=== PATIENT | female | born 1990 | race Two or more races ===

== ENCOUNTER → 2021-01-07 09:56 | Outpatient (BNVA) | payer OTHER, SELFPAY | PROVIDERS: Visit Provider Obstetrics & Gynecology | DX: Z34.90 Encounter for supervision of normal pregnancy, unspecified, unspecified trimester (principal); E66.9 Obesity, unspecified; Z78.9 Other specified health status; Z87.59 Personal history of other complications of pregnancy, childbirth and the puerperium | CPT/HCPCS: 99212 ==

== ENCOUNTER 2021-01-10 14:10 | Outpatient (REF) | payer OTHER, SELFPAY ==
[2021-01-10 15:41] LABS: HCG Quantitative 10 mIU/mL
== END 2021-01-10 14:11 | disposition home or self-care (01) ==
LOC: HO.LAB 14:10
PROVIDERS: Visit Provider Obstetrics & Gynecology
DX: O20.0 Threatened abortion (principal)
CPT/HCPCS: 36415; 84702; 86850; 86900; 86901

== ENCOUNTER 2021-01-11 08:17 | Outpatient (REF) | payer OTHER, SELFPAY ==
--- NOTE | ~2021-01-11 | US_ITS ---
EXAMINATION: US PELVIS ULTRASOUND CLINICAL INFORMATION: Early . Unknown LMP. Cramping. Threatened . COMPARISON: Pelvic ultrasound 08/13/2017 TECHNIQUE: Ultrasound of the pelvis is performed using both transabdominal and transvaginal transducers along with Doppler. Transvaginal imaging is performed due to inadequate visualization transabdominally. FINDINGS: Uterus: The uterus is anteverted and measures 6.9 x 4.1 x 4.8 cm. The double wall endometrial thickness is 6 mm. There is no intrauterine gestational sac or pseudosac or fluid in the uterine cavity. A 3 mm nonspecific hyperechoic focus is present at the fundal anterior endometrium. There is no associated color flow or posterior shadowing. The uterus is smooth in contour and has normal myometrial echogenicity. No visible fibroid. Adnexa: Both ovaries are visualized. There is normal color flow to the adnexa. There is no ovarian torsion. There is no pelvic ascites or fluid collection. Right ovary measures 3.1 x 1.6 x 1.9 cm. Left ovary measures 2.4 x 1.3 x 1.3 cm. Preliminary findings called to Obstetrical Department at 0905 hours. Patient sent to obstetrical department for further management immediately following the ultrasound. US/US OB transvaginal IMPRESSION: 1. No intrauterine gestational sac, pseudocyst, or fluid in uterine cavity. 2. Nonspecific 3 mm hyperechoic focus anterior fundal endometrium without shadowing or color flow, doubtful significance. 3. No adnexal mass or pelvic ascites.
--- NOTE | ~2021-01-11 | US_ITS ---
EXAMINATION: US PELVIS ULTRASOUND CLINICAL INFORMATION: Early . Unknown LMP. Cramping. Threatened . COMPARISON: Pelvic ultrasound 08/13/2017 TECHNIQUE: Ultrasound of the pelvis is performed using both transabdominal and transvaginal transducers along with Doppler. Transvaginal imaging is performed due to inadequate visualization transabdominally. FINDINGS: Uterus: The uterus is anteverted and measures 6.9 x 4.1 x 4.8 cm. The double wall endometrial thickness is 6 mm. There is no intrauterine gestational sac or pseudosac or fluid in the uterine cavity. A 3 mm nonspecific hyperechoic focus is present at the fundal anterior endometrium. There is no associated color flow or posterior shadowing. The uterus is smooth in contour and has normal myometrial echogenicity. No visible fibroid. Adnexa: Both ovaries are visualized. There is normal color flow to the adnexa. There is no ovarian torsion. There is no pelvic ascites or fluid collection. Right ovary measures 3.1 x 1.6 x 1.9 cm. Left ovary measures 2.4 x 1.3 x 1.3 cm. Preliminary findings called to Obstetrical Department at 0905 hours. Patient sent to obstetrical department for further management immediately following the ultrasound. US/US OB <= 14 weeks fetus IMPRESSION: 1. No intrauterine gestational sac, pseudocyst, or fluid in uterine cavity. 2. Nonspecific 3 mm hyperechoic focus anterior fundal endometrium without shadowing or color flow, doubtful significance. 3. No adnexal mass or pelvic ascites.
== END 2021-01-11 08:18 | disposition home or self-care (01) ==
LOC: HO.US 08:17
PROVIDERS: Visit Provider Obstetrics & Gynecology
DX: O20.0 Threatened abortion (principal)
CPT/HCPCS: 76801; 76817

== ENCOUNTER 2021-01-14 11:44 | Outpatient (REF) | payer OTHER, SELFPAY ==
[2021-01-14 12:26] LABS: Hematocrit 40.1 % (37-47); Hemoglobin 12.6 g/dl (12.0-16.0); Mean Corpuscular HGB Conc 31.4 g/dl (31.0-35.0); Mean Corpuscular Hemoglobin 22.6 pg (27.0-33.0); Mean Corpuscular Volume 71.9 fL (80-98); Mean Platelet Volume 10.1 fL (9.4-12.3); Platelet Count 300 X10*3/uL (160-400); Red Blood Count 5.58 X10*6/uL (4.20-5.50); Red Cell Distribution Width 16.8 % (11.0-16.0); White Blood Count 8.6 X10*3/uL (4.8-10.8)
[2021-01-14 13:25] LABS: HCG Quantitative < 2 mIU/mL
== END 2021-01-14 11:45 | disposition home or self-care (01) ==
LOC: HO.LAB 11:44
PROVIDERS: Visit Provider Advanced Practice Midwife
DX: O20.0 Threatened abortion (principal)
CPT/HCPCS: 36415; 84702; 85027; 99212

== ENCOUNTER 2021-01-21 08:33 | Outpatient (REF) | payer OTHER, SELFPAY ==
[2021-01-24 07:17] LABS: HPV mRNA E6/E7 rflx Not Detected (Not Detected)
== END 2021-01-21 08:34 | disposition home or self-care (01) ==
LOC: HO.LAB 08:33
PROVIDERS: Visit Provider Obstetrics & Gynecology
DX: Z01.419 Encounter for gynecological examination (general) (routine) without abnormal findings (principal); Z11.51 Encounter for screening for human papillomavirus (HPV)
CPT/HCPCS: 87624; 88142

== ENCOUNTER 2021-04-28 23:51 | Emergency (ER) | payer OTHER, SELFPAY ==
--- NOTE | ~2021-04-28 | CT_ITS ---
EXAMINATION: CT CHEST WITHOUT CONTRAST CLINICAL INFORMATION: Covid like symptoms. Repeat negative swabs COMPARISON: Radiograph from today TECHNIQUE: Multidetector volumetric CT imaging of the chest was done. Axial MIP volume rendering provided. Sagittal and coronal reformatted images were obtained. This CT examination was performed using dose optimization techniques as appropriate, variously including the following: *Automated exposure control *Adjustment of mA and/or kV according to patient size (this includes techniques or standardized protocols for targeted exams where dose is matched to indication/reason for exam; i.e. extremities or head) *Use of iterative reconstruction technique DLP: 465 mGy-cm FINDINGS: BLOOD SPLATTER ANALYST: Cardiac leads overlie the chest. LUNGS: The central airways are patent. Multifocal groundglass opacities are seen throughout both lungs. No pleural effusion or pneumothorax. MEDIASTINUM: Normal heart size. No pericardial effusion. No mediastinal lymphadenopathy. AXILLA: No lymphadenopathy. UPPER ABDOMEN: Cholecystectomy. OSSEOUS STRUCTURES: Unremarkable. CT/CT chest wo con IMPRESSION: Multifocal groundglass opacities throughout both lungs. Commonly reported imaging features of (COVID-19 or viral) pneumonia are present. Other processes such as influenza pneumonia and organizing pneumonia, as can be seen with drug toxicity and connective tissue disease, can cause a similar imaging pattern.
--- NOTE | ~2021-04-28 | XR_ITS ---
EXAMINATION: XR CHEST CLINICAL INFORMATION: Rule out pneumonia COMPARISON: 04/12/2018 TECHNIQUE: Frontal view of the chest was obtained. FINDINGS: Cardiac leads overlie the chest. The lungs are well expanded. Bronchial wall thickening present. There is no focal consolidation, edema, or effusion. No pneumothorax. The cardiomediastinal silhouette is within normal limits. No acute osseous abnormality. XR/XR chest 1V IMPRESSION: No dense consolidation. Bronchial wall thickening can be seen with a small airways process such as asthma or atypical/viral infection.
[2021-04-29 00:03] VITALS: BP 120/70; PULSE 128; RESP 22; TEMP 38.2; O2SAT 95; BMI 40.1
--- NOTE | 2021-04-29 00:12 | ED.FEVER ---
HPI - Fever General Chief Complaint: Fever Stated Complaint: Flu like symptoms Time Seen by Provider: 04/29/21 00:05 Source: patient Mode of arrival: ambulatory Limitations: no limitations History of Present Illness MD elicited complaint: fever, malaise and other (cough) Onset (ago): day(s) (6) Context: sick contacts (child and boyfriend both sick negative COVID in spouse) Exacerbating factors: nothing Relieving factors: nothing Associated symptoms: chills, myalgias, headache, rhinorrhea and cough Treatments prior to arrival fever: none Related Data Home Medications Medication Instructions Recorded Confirmed prenat.vits,comfort,[id number] 1 tab PO DAILY 01/07/21 01/21/21 Allergies Allergy/AdvReac Type Severity Reaction Status Date / Time No Known Allergies Allergy Mild NOT Verified 01/21/21 08:38 APPLICABLE Review of Systems Review of Systems: Constitutional : positive Fever, positive Chills, positive fatigue, positive Malaise ENT/Mouth : positive sore throat, positive runny nose Eyes: No Discharge Cardiovascular : No Chest Pain, No SOB Respiratory : pos Cough, No Sputum Gastrointestinal : No Nausea, No Vomiting, No Diarrhea Genitourinary : No Dysuria, No Urinary Frequency Musculoskeletal : positive Myalgia Skin : No rash Neuro : No Headache All other systems reviewed and are negative PMFSH Past Medical History Attestation statement: The following information was validated with the patient. Medical History Cholecystectomy planned No known health problems Family History Family History Mother Lymphoma Maternal Grandfather Colon cancer Social History Social History (Updated 04/29/21 @ 00:20 by Nan Aranda DO) Alcohol intake: former Patient Tobacco Use Status: Never used Tobacco Advance Directives: No Advance Directives Information Provided: Yes Patient : No Physical Exam Vital Signs: Vital Signs: Last Vital Signs Temp 100.8 F H 04/29/21 00:03 Pulse 128 H 04/29/21 00:03 Resp 22 H 04/29/21 00:03 BP 120/70 04/29/21 00:03 Pulse Ox 95 04/29/21 00:03 Body Mass Index 40.1 Appearance: Alert. Oriented X3. No acute distress. Eyes: Pupils equal, round and reactive to light. ENT: Pharynx normal. Neck: Normal inspection. Neck supple. CVS: tachycardic heart rate and rhythm. Pulses normal. Respiratory: No respiratory distress. Breath sounds diffuse end exp wheezes Abdomen: Soft and non-tender. Skin: Skin warm and dry. Normal skin color. Normal skin turgor. Extremities: No lower extremity edema. No calf ttp Neuro: Oriented X 3. No motor deficit. No sensory deficit. Course Course Course Narrative: had COVID back in August signed out pending labs, CT scan 95% on RA MDM - Fever MDM Narrative Medical decision making narrative: 31 yo female with hx of asthma here with fevers, cough, URI symptoms and positive sick contacts - COVID, CXR for pneumonia ordered, given wheezes INH and PO prednisone ordered. anti-pyretics ordered, dispo per results and findings. Lab Data Result diagrams: 04/29/21 01:28 04/29/21 01:28 Labs: Lab Results 04/29/21 04/29/21 Range/Units 00:27 01:28 WBC 14.3 H (4.8-10.8) X10*3/uL RBC 5.14 (4.20-5.50) X10*6/uL Hgb 12.0 (12.0-16.0) g/dl Hct 36.8 L (37-47) % MCV 71.6 L (80-98) fL MCH 23.3 L (27.0-33.0) pg MCHC 32.6 (31.0-35.0) g/dl RDW 15.6 (11.0-16.0) % Plt Count 265 (160-400) X10*3/uL MPV 9.8 (9.4-12.3) fL Immature Gran % (Auto) 0.5 H (0.0-0.4) % Neut % (Auto) 69.8 (45-73) % Lymph % (Auto) 22.2 (20-40) % [place] % (Auto) 4.9 (2-11) % Eos % (Auto) 2.4 (0-4) % Baso % (Auto) 0.2 (0-2) % Lymph # (Auto) 3.2 (1.2-4.9) X10*3/uL [place] # (Auto) 0.7 (0.1-1.2) X10*3/uL Eos # (Auto) 0.3 (0.0-0.4) X10*3/uL Baso # (Auto) 0.0 (0.0-0.2) X10*3/uL Abs Immat Gran (auto) 0.07 H (0.00-0.03) X10*3/uL Absolute Neuts (auto) 10.0 H (2.0-8.3) X10*3/uL Absolute Nucleated RBC 0.000 (0.0-0.012) X10*3/uL Nucleated RBC % (auto) 0.0 (0.0-0.2) /100WBC COVID-19 ([facility]BROSIO) Negative (Negative) COVID-19 Clin Com See Note Discharge Plan Discharge Clinical Impression: Acute bronchospasm Fever Qualifiers: Fever type: due to other condition Qualified Code(s): R50.81 - Fever presenting with conditions classified elsewhere Prescriptions: No Action prenat.vits,comfort,[id number] Tablet 1 tab PO DAILY RF: 0
[2021-04-29] MEDS: predniSONE 20 MG TABLET 60 MG PO (00:28)
[2021-04-29] MEDS: Acetaminophen 325 MG TABLET 650 MG PO (00:28)
[2021-04-29] MEDS: Ibuprofen 600 MG TABLET PO (00:29)
[2021-04-29] MEDS: Albuterol Sulfate 90 MCG 8 GM INHALER 4 PUFF INHALE (00:32)
[2021-04-29 00:53] LABS: COVID-19 Test Negative (Negative)
[2021-04-29] MEDS: 0.9 % Sodium Chloride 500 ML IV (01:32)
[2021-04-29 01:38] LABS: MANUAL DIFF FLAG NO
[2021-04-29 01:39] LABS: Basophils Percent Auto 0.2 % (0-2); Eosinophils Absolute Auto 0.3 X10*3/uL (0.0-0.4); Eosinophils Percent Auto 2.4 % (0-4); Hematocrit 36.8 % (37-47); Imm Gran Abs Auto 0.07 X10*3/uL (0.00-0.03); Imm Gran Pct Auto 0.5 % (0.0-0.4); Lymphocytes Absolute Auto 3.2 X10*3/uL (1.2-4.9); Lymphocytes Percent Auto 22.2 % (20-40); Mean Corpuscular HGB Conc 32.6 g/dl (31.0-35.0); Mean Corpuscular Hemoglobin 23.3 pg (27.0-33.0); Mean Corpuscular Volume 71.6 fL (80-98); Mean Platelet Volume 9.8 fL (9.4-12.3); Monocytes Absolute Auto 0.7 X10*3/uL (0.1-1.2); Monocytes Percent Auto 4.9 % (2-11); Neutrophils Percent Auto 69.8 % (45-73); Platelet Count 265 X10*3/uL (160-400); Red Blood Count 5.14 X10*6/uL (4.20-5.50); Red Cell Distribution Width 15.6 % (11.0-16.0); White Blood Count 14.3 X10*3/uL (4.8-10.8)
[2021-04-29 02:00] LABS: Lactic Acid 0.9 mmol/L (0.5-2.0)
[2021-04-29 02:05] LABS: Alanine Aminotransferase 26 U/L (0-31); Albumin Level 3.9 g/dL (3.5-5.0); Alkaline Phosphatase 102 U/L (39-117); Anion Gap 14 (12-20); Aspartate Amino Transferase 22 U/L (5-31); Bilirubin Direct 0.2 mg/dL (0.0-0.5); Bilirubin Total 0.4 mg/dL (0.0-1.0); Blood Urea Nitrogen 11 mg/dL (9-16); Calcium 8.9 mg/dL (8.4-10.2); Carbon Dioxide 20 mmol/L (22-29); Chloride 107 mmol/L (96-108); Creatinine Clr Calc Pharmacy 145.1; Estimated Glomerular Filt Rate > 60; Glucose Random 104 mg/dL (60-115); Lactate Dehydrogenase 289 U/L (122-220); Potassium 3.7 mmol/L (3.3-5.1); Sodium 137 mmol/L (135-145)
[2021-04-29 02:08] LABS: HCG Quantitative < 2 mIU/mL
[2021-04-29] MEDS: cefTRIAXone sodium 1 GM in 0.9 % Sodium Chloride 50 ML IV (02:11)
[2021-04-29 02:12] VITALS: TEMP 37.2
[2021-04-29 02:42] LABS: Influenza A PCR NEGATIVE (Negative); Influenza B PCR NEGATIVE (Negative); Resp Syncy Virus RNA Qual PCR NEGATIVE (Negative); SARS COV2 PCR INHOUSE NEGATIVE (Negative)
--- NOTE | 2021-04-29 03:00 | PC.NURSE ---
patient during ambulating trial going from 97% on room air to 93% at the lowest while ambulating.
[2021-04-29] MEDS: Azithromycin 500 MG TABLET PO (03:28)
== END 2021-04-29 03:36 | disposition home or self-care (01) ==
PROVIDERS: Student in an Organized Health Care Education/Training Program; Emergency Provider Emergency Medicine
DX: J98.01 Acute bronchospasm (principal); R50.9 Fever, unspecified; M79.10 Myalgia, unspecified site; R51.9 Headache, unspecified; R05 Cough; Z20.822 Contact with and (suspected) exposure to COVID-19; Z79.899 Other long term (current) drug therapy
CPT/HCPCS: 0241U; 36415; 71045; 71250; 80048; 80076; 83605; 83615; 84702; 85025; 87040; 87635; 94640; 96361; 96365; 96375; 99283; 99284; J0696

== ENCOUNTER → 2021-08-07 10:05 | Outpatient (BNVA) | payer OTHER, SELFPAY | PROVIDERS: Visit Provider Advanced Practice Midwife | DX: Z34.90 Encounter for supervision of normal pregnancy, unspecified, unspecified trimester (principal); O99.210 Obesity complicating pregnancy, unspecified trimester; E66.9 Obesity, unspecified; Z3A.00 Weeks of gestation of pregnancy not specified; Z87.59 Personal history of other complications of pregnancy, childbirth and the puerperium | CPT/HCPCS: 81025; 99212 ==

== ENCOUNTER 2021-08-16 10:22 | Outpatient (REF) | payer OTHER, SELFPAY ==
--- NOTE | ~2021-08-16 | US_ITS ---
EXAMINATION: US OBSTETRICAL ULTRASOUND CLINICAL INFORMATION: Encounter for supervision abnormal . Check size and dates. COMPARISON: None. LMP: 06/11/2021. Gestational age by maternal dates is 9 weeks 3 days. Estimated date of delivery by maternal dates is 03/18/2022. TECHNIQUE: Transverse abdominal first trimester OB ultrasound FINDINGS: There is a single intrauterine gestational sac with visible yolk sac, embryo/fetus, and cardiac activity. There is no significant subchorionic hemorrhage or hematoma. HR: 167 beats per minute. CRL (crown rump length): 2 cm (8 weeks 5 days +/- 4 days). LORNA (estimated date of delivery): 03/23/2022 +/- 4 days. MATERNAL ADNEXA: The right maternal ovary measures 2.6 x 1.4 x 1.3 cm. The left maternal ovary measures 3.4 x 3 x 2.6 cm. There is a 2.4 x 2.2 x 1.8 cm simple left ovarian cyst. No maternal pelvic ascites. US/US OB <= 14 weeks fetus IMPRESSION: 1. Single intrauterine gestation with ultrasound gestational age of 8 weeks 5 days +/- 4 days. 2. Estimated date of delivery is 03/23/2022 +/- 4 days. 3. No maternal adnexal mass or pelvic ascites.
== END 2021-08-16 10:23 | disposition home or self-care (01) ==
LOC: HO.HMGCX 10:22
PROVIDERS: Visit Provider Advanced Practice Midwife
DX: Z34.91 Encounter for supervision of normal pregnancy, unspecified, first trimester (principal)
CPT/HCPCS: 76801

== ENCOUNTER → 2021-08-21 10:01 | Outpatient (BNVA) | payer OTHER, SELFPAY | PROVIDERS: Visit Provider Advanced Practice Midwife | DX: Z34.91 Encounter for supervision of normal pregnancy, unspecified, first trimester (principal); Z3A.09 9 weeks gestation of pregnancy | CPT/HCPCS: 99212 ==

== ENCOUNTER 2021-08-26 09:34 | Outpatient (REF) | payer OTHER, SELFPAY ==
[2021-08-26 11:07] LABS: Hematocrit 38.7 % (37.0-47.0); Hemoglobin 12.3 g/dl (12.0-16.0); Mean Corpuscular HGB Conc 31.8 g/dl (31.0-35.0); Mean Corpuscular Hemoglobin 22.8 pg (27.0-33.0); Mean Corpuscular Volume 71.8 fL (80.0-98.0); Platelet Count 286 X10*3/uL (160-400); Red Blood Count 5.39 X10*6/uL (4.20-5.50); Red Cell Distribution Width 15.5 % (11.0-16.0); White Blood Count 8.8 X10*3/uL (4.8-10.8)
[2021-08-26 11:30] LABS: Glucose 1 Hour PP 50gm Dose 157 mg/dL (60-140)
[2021-08-26 11:39] LABS: Alanine Aminotransferase 22 U/L (0-31); Aspartate Amino Transferase 17 U/L (5-31); Blood Urea Nitrogen 9 mg/dL (9-16); Estimated Glomerular Filt Rate > 60; Uric Acid 3.7 mg/dL (2.4-5.7)
[2021-08-26 11:40] LABS: Amphetamine Screen Urine Not Detected (Not Detect); Barbiturates, Urine Not Detected (Not Detect); Benzodiazepines Screen Urine Not Detected (Not Detect); Cannabinoid Screen Urine Not Detected (Not Detect); Cocaine Screen Urine Not Detected (Not Detect); Fentanyl, urine Not Detected (Not Detect); Opiate Screen Urine Not Detected (Not Detect); Phencyclidine Screen Urine Not Detected (Not Detect)
[2021-08-26 12:01] LABS: HIV AB/AG Nonreactive (Nonreactive); HIV Num 1 0.05 S/CO (0.00-0.99); ~HepC Num1 0.11 S/CO (0.00-0.79); ~Hepatitis C Antibody Nonreactive (Nonreactive)
[2021-08-26 13:09] LABS: Syphilis Screen Nonreactive (Nonreactive)
[2021-08-26 13:11] LABS: HBsAGNum1 0.36 S/CO (0.00-0.99); Hepatitis B Surface Antigen Negative (Negative)
[2021-08-26 16:50] LABS: Creatinine Urine 251.19 mg/dL; Protein/Creatinine Ratio, Ur 0.07 (<0.2); Total Protein Urine Random 17 mg/dL (<12)
== END 2021-08-26 09:35 | disposition home or self-care (01) ==
LOC: HO.LAB 09:34
PROVIDERS: Visit Provider Advanced Practice Midwife
DX: Z34.90 Encounter for supervision of normal pregnancy, unspecified, unspecified trimester (principal); Z87.59 Personal history of other complications of pregnancy, childbirth and the puerperium
CPT/HCPCS: 80307; 82565; 84156; 84450; 84460; 84520; 84550; 85027; 86762; 86780; 86787; 86803; 86850; 86900; 86901; 87086; 87340; 87389

== ENCOUNTER 2021-09-20 08:49 | Outpatient (REF) | payer OTHER, SELFPAY ==
--- NOTE | ~2021-09-20 | US_ITS ---
EXAMINATION: OBSTETRICAL ULTRASOUND, FIRST TRIMESTER HISTORY: 31-year-old at 13.5 weeks of gestation NT screening COMPARISON: 08/16/2021 TECHNIQUE: Real time transabdominal imaging with color and M-mode Doppler. FINDINGS: A single, live IUP CRL of 80.5 mm c/w 14.0wks is noted. Heart Rate: 150 beats per minute. Normal yolk sac seen. NT was 1.2.mm. NB Present The embryo appears sonographically wnl for this GA. Both maternal ovaries are seen and appear normal. GESTATIONAL AGE: 1. Established GA: 13.5 wks 2. GA from AUA: 14.0 wks ESTIMATED DATE OF DELIVERY: 1. Established LORNA: 03/23/2022 2. LORNA from AUA: 03/21/2022 US/US OB 1T nuc measure IMPRESSION: 1. A single live IUP 2. Size equals dates 3. NT of 1.2 mm MFM Consultation: I reviewed the ultrasound findings along with significance of NT measurement. The NT of less than 3mm is generally reassuring. However, the sensitivity for T21 detection is only 60%. I reviewed the availability of serum aneuploidy screening which includes cell-free DNA and placental protein based tests. I discussed the sensitivity, false-positive rate, and other limitations associated with each test. I also reviewed the availability of invasive diagnostic tests that are associated small but definite risk of miscarriage. We also reviewed the differences between screening tests and diagnostic tests. After our discussion, she opted for the First trimester screening that is based on cell-free DNA or non-invasive testing (NIPT). The result will be faxed to your office in approximately 7 days. A follow up at 18 weeks for survey has been scheduled. Thank you very much for this referral. Total time 30 minutes. The time spent was devoted to counseling the patient about the disease and diagnosis, coordinating care including reviewing her records, pertinent lab data and studies, as well as discussing diagnostic evaluation and workup, plan therapeutic interventions and future disposition of care. This includes any additional research needed to obtain further information in formulating the plan of care of this patient. This note was generated with a voice recognition program. Please excuse any errors which may have been overlooked during my review of this note. Sometimes these errors may affect the content or meaning of a given sentence.
== END 2021-09-20 08:50 | disposition home or self-care (01) ==
LOC: HO.US 08:49
PROVIDERS: Visit Provider Advanced Practice Midwife
DX: Z34.91 Encounter for supervision of normal pregnancy, unspecified, first trimester (principal); Z3A.13 13 weeks gestation of pregnancy
CPT/HCPCS: 76813

== ENCOUNTER 2021-09-28 19:39 | Emergency (ER) | payer OTHER, SELFPAY ==
--- NOTE | ~2021-09-28 | US_ITS ---
Indication: 15 weeks , bleeding EXAMINATION: Limited obstetrical ultrasound. Findings; There is a single live intrauterine . The placenta is posterior. Posterior to the placenta is mixed echogenicity large area measuring 6.2 x 4.1 x 5.9 cm. Retroplacental hemorrhage/abruption needs to be considered. The placenta appears to be away from the os. heart rate 156 bpm measured by the river driver. The right ovary is not seen. No free fluid in the pelvis. Simple appearing cyst on the left ovary 1.4 x 1.5 x 1.2 cm US/US OB limited IMPRESSION: This is a limited exam. There is a single live intrauterine with heart rate at 156 bpm. The placenta is posterior however posterior to the placenta is a large area of abnormal mixed echogenicity and therefore hemorrhage/abruption needs to be considered This critical result was discussed with Dr. Vidal at 10:57 PM on 09/28/2021 and it was ascertained that the content and urgency of the report was understood at the time of direct communication.
[2021-09-28 20:30] VITALS: BP 127/89; PULSE 100; RESP 18; TEMP 35.9; O2SAT 97; BMI 41.5
[2021-09-28 22:53] LABS: MANUAL DIFF FLAG NO
[2021-09-28 22:54] LABS: Basophils Percent Auto 0.3 % (0-2); Eosinophils Absolute Auto 0.6 X10*3/uL (0.0-0.4); Eosinophils Percent Auto 4.7 % (0-4); Hematocrit 34.4 % (37.0-47.0); Imm Gran Abs Auto 0.05 X10*3/uL (0.00-0.03); Imm Gran Pct Auto 0.4 % (0.0-0.4); Lymphocytes Absolute Auto 3.1 X10*3/uL (1.2-4.9); Lymphocytes Percent Auto 26.3 % (20-40); Mean Corpuscular Hemoglobin 23.3 pg (27.0-33.0); Mean Corpuscular Volume 72.7 fL (80.0-98.0); Monocytes Absolute Auto 0.6 X10*3/uL (0.1-1.2); Monocytes Percent Auto 4.9 % (2-11); Neutrophils Absolute Auto 7.6 x10*3/uL (2.0-8.3); Neutrophils Percent Auto 63.4 % (45-73); Platelet Count 287 X10*3/uL (160-400); Red Blood Count 4.73 X10*6/uL (4.20-5.50); Red Cell Distribution Width 15.4 % (11.0-16.0)
[2021-09-28 23:09] LABS: Alanine Aminotransferase 13 U/L (0-31); Albumin Level 3.4 g/dL (3.5-5.0); Alkaline Phosphatase 101 U/L (39-117); Anion Gap 12 (12-20); Aspartate Amino Transferase 13 U/L (5-31); Bilirubin Total 0.2 mg/dL (0.0-1.0); Blood Urea Nitrogen 11 mg/dL (9-16); Calcium 9.2 mg/dL (8.4-10.2); Carbon Dioxide 21 mmol/L (22-29); Chloride 110 mmol/L (96-108); Creatinine Clr Calc Pharmacy 197.3; Estimated Glomerular Filt Rate > 60; Glucose Random 110 mg/dL (60-115); Potassium 3.9 mmol/L (3.3-5.1); Sodium 139 mmol/L (135-145); Total Protein 6.5 g/dL (6.5-8.0)
--- NOTE | 2021-09-28 23:40 | ED.FEMALEGU ---
HPI - Female Genitourinary General Chief complaint: Vaginal Bleeding Stated complaint: Vaginal spotting/15 Wks preg Time Seen by Provider: 09/28/21 20:48 History of Present Illness HPI Narrative: This is a 31-year-old female who is about 15 weeks who noted today when she wiped herself that there was small amount of blood on the tissue. She has had prior miscarriages and on 1 blood throughout her . She has not however had vaginal bleeding before during this . She has noted recent urinary frequency. She denies any fever. She has had nausea associated with , no severe vomiting. She denies any lower abdominal pain or cramping Related Data Previous Rx's Medication Instructions Recorded aspirin 81 mg tablet,delayed 162 mg PO DAILY #300 tab 08/07/21 release (Adult Aspirin Regimen) vitamin with calcium 1 tab PO DAILY #90 tab 08/07/21 no.72-iron 27 mg-folic acid 1 mg tablet ( Vitamins Plus Low Iron) Allergies Allergy/AdvReac Type Severity Reaction Status Date / Time No Known Allergies Allergy Mild NOT Verified 08/21/21 10:13 APPLICABLE Review of Systems Constitutional: Constitutional: Denies fever(s) Eyes: Eyes: Reports no additional eye complaints ENT: Denies dizziness Cardiovascular: Cardiovascular: Reports no additional cardiovascular complaints Respiratory: Respiratory: Reports no additional respiratory complaints Gastrointestinal: Gastrointestinal: Reports no additional gastrointestinal complaints and Reports nausea Genitourinary: Genitourinary: Reports abnormal vaginal bleeding and Reports urinary urgency Neurologic: Denies dizziness and Denies Sensory deficit (Neuro) Psychiatric: Psychiatric: Reports no additional psychiatric complaints [facility] Past Medical History Medical History Cholecystectomy planned No known health problems Family History Family History (Updated 08/21/21 @ 11:12 by Jen Magana LPN) Mother Lymphoma Diabetes Maternal Grandfather Colon cancer Father Diabetes Maternal Grandmother Pulmonary disease Social History Social History (Updated 08/21/21 @ 10:19 by Jen Magana LPN) Household Members: Significant Other and Children Housing: Apartment Alcohol intake: former Patient Tobacco Use Status: Never used Tobacco Tobacco use type: Cigarette Cigarette Packs Per Day: 1 Years Smoked: 10 Agree to transfusion: Yes Advance Directives: No Advance Directives Information Provided: Yes Patient : Yes Physical Exam Vital Signs: Vital Signs: Last Vital Signs Temp 96.7 F L 09/28/21 20:30 Pulse 100 09/28/21 20:30 Resp 18 09/28/21 20:30 BP 127/89 09/28/21 20:30 Pulse Ox 97 09/28/21 20:30 BMI result Body Mass Index 41.5 Const: General: cooperative, no acute distress and alert Orientation/consciousness: patient oriented x3 HENMT: Head: Yes normal to inspection Eyes: General: appearance normal, both eyes and all related structures Eyelids: Yes eyelids normal Conjunctivae: conjunctivae normal Pupils: Equal, round and reactive pupils present Neck: Neck: Yes normal visual inspection and Yes supple Chest: Chest palpation & inspection: normal inspection of the chest Resp: Effort & Inspection: normal respiratory effort Auscultation: clear to auscultation bilaterally Cardio: Rate: regular rate Rhythm: regular rhythm Heart sounds: S1 normal heart sound present, S2 normal heart sound present, no gallops, no murmurs and no rubs GI: Palpation (GI): Soft to palpation, nontender and Other GI palpation findings present (Non-distended) Auscultation: normal bowel sounds Skin: General skin exam: no rashes or lesions noted Neuro: General: patient oriented x3, no focal motor deficits and CN's II-XI intact bilaterally Cranial nerves: Yes Equal, round and reactive pupils present Cognition (Neuro): normal cognition Motor exam (neuro): 5/5 motor strength present throughout Sensory Exam: No Sensory deficit (Neuro) Extrem: General: Yes normal to inspection and Yes no pedal edema Psych: Appearance: grossly normal Affect: normal affect MDM - Female Genitourinary MDM Narrative Medical decision making narrative: Patient 15 weeks , had minor vaginal spotting, only present with wiping, starting today. No cramping. Ultrasound shows an IUP with normal activity. Radiologist mentioned on the phone and on the report possibility of placental abruption, however he stated this was a limited exam, and the visualized abnormality could also be something like a uterine fibroid. Given the clinical picture with no cramping and only minor vaginal spotting, I believe this likely represents concerning pathology such as abruptio placenta. Lab Data Attestation: I reviewed the patient's lab results. Result diagrams: 09/28/21 22:47 09/28/21 22:47 Labs: Lab Results 09/28/21 09/28/21 09/28/21 Range/Units 22:45 22:47 22:47 WBC 12.0 H (4.8-10.8) X10*3/uL RBC 4.73 (4.20-5.50) X10*6/uL Hgb 11.0 L (12.0-16.0) g/dl Hct 34.4 L (37.0-47.0) % MCV 72.7 L (80.0-98.0) fL MCH 23.3 L (27.0-33.0) pg MCHC 32.0 (31.0-35.0) g/dl RDW 15.4 (11.0-16.0) % Plt Count 287 (160-400) X10*3/uL MPV 10.0 (9.4-12.3) fL Immature Gran % (Auto) 0.4 (0.0-0.4) % Neut % (Auto) 63.4 (45-73) % Lymph % (Auto) 26.3 (20-40) % [place] % (Auto) 4.9 (2-11) % Eos % (Auto) 4.7 H (0-4) % Baso % (Auto) 0.3 (0-2) % Lymph # (Auto) 3.1 (1.2-4.9) X10*3/uL [place] # (Auto) 0.6 (0.1-1.2) X10*3/uL Eos # (Auto) 0.6 H (0.0-0.4) X10*3/uL Baso # (Auto) 0.0 (0.0-0.2) X10*3/uL Abs Immat Gran (auto) 0.05 H (0.00-0.03) X10*3/uL Absolute Neuts (auto) 7.6 (2.0-8.3) x10*3/uL Absolute Nucleated RBC 0.000 (0.0-0.012) X10*3/uL Nucleated RBC % (auto) 0.0 (0.0-0.2) /100WBC Sodium 139 (135-145) mmol/L Potassium 3.9 (3.3-5.1) mmol/L Chloride 110 H (96-108) mmol/L Carbon Dioxide 21 L (22-29) mmol/L Anion Gap 12 (12-20) BUN 11 (9-16) mg/dL Creatinine 0.60 (0.5-1.4) mg/dL Estim Creat Clear Calc 197.3 Estimated GFR > 60 Random Glucose 110 (60-115) mg/dL Calcium 9.2 (8.4-10.2) mg/dL Total Bilirubin 0.2 (0.0-1.0) mg/dL AST 13 (5-31) U/L ALT 13 (0-31) U/L Alkaline Phosphatase 101 (39-117) U/L Total Protein 6.5 (6.5-8.0) g/dL Albumin 3.4 L (3.5-5.0) g/dL Beta HCG, Quant 95725 mIU/mL Urine Color Urine Appearance Urine pH (5.0-8.0) Ur Specific [place] (1.005-1.025) Urine Protein (NEG-TRACE) MG/DL Urine Glucose (UA) (NEG) MG/DL Urine Ketones (NEG) MG/DL Urine Blood (NEG) Urine Nitrite (NEG) Ur Leukocyte Esterase (NEG) Blood Type A Positive 09/29/21 Range/Units 00:58 WBC (4.8-10.8) X10*3/uL RBC (4.20-5.50) X10*6/uL Hgb (12.0-16.0) g/dl Hct (37.0-47.0) % MCV (80.0-98.0) fL MCH (27.0-33.0) pg MCHC (31.0-35.0) g/dl RDW (11.0-16.0) % Plt Count (160-400) X10*3/uL MPV (9.4-12.3) fL Immature Gran % (Auto) (0.0-0.4) % Neut % (Auto) (45-73) % Lymph % (Auto) (20-40) % [place] % (Auto) (2-11) % Eos % (Auto) (0-4) % Baso % (Auto) (0-2) % Lymph # (Auto) (1.2-4.9) X10*3/uL [place] # (Auto) (0.1-1.2) X10*3/uL Eos # (Auto) (0.0-0.4) X10*3/uL Baso # (Auto) (0.0-0.2) X10*3/uL Abs Immat Gran (auto) (0.00-0.03) X10*3/uL Absolute Neuts (auto) (2.0-8.3) x10*3/uL Absolute Nucleated RBC (0.0-0.012) X10*3/uL Nucleated RBC % (auto) (0.0-0.2) /100WBC Sodium (135-145) mmol/L Potassium (3.3-5.1) mmol/L Chloride (96-108) mmol/L Carbon Dioxide (22-29) mmol/L Anion Gap (12-20) BUN (9-16) mg/dL Creatinine (0.5-1.4) mg/dL Estim Creat Clear Calc Estimated GFR Random Glucose (60-115) mg/dL Calcium (8.4-10.2) mg/dL Total Bilirubin (0.0-1.0) mg/dL AST (5-31) U/L ALT (0-31) U/L Alkaline Phosphatase (39-117) U/L Total Protein (6.5-8.0) g/dL Albumin (3.5-5.0) g/dL Beta HCG, Quant mIU/mL Urine Color YELLOW Urine Appearance CLEAR Urine pH 6.0 (5.0-8.0) Ur Specific [place] >= 1.030 H (1.005-1.025) Urine Protein NEG (NEG-TRACE) MG/DL Urine Glucose (UA) NEG (NEG) MG/DL Urine Ketones NEG (NEG) MG/DL Urine Blood NEG (NEG) Urine Nitrite NEG (NEG) Ur Leukocyte Esterase NEG (NEG) Blood Type Imaging Data Pelvic ultrasound: Radiologist's impression: IMPRESSION: This is a limited exam. There is a single live intrauterine with heart rate at 156 bpm. ? The placenta is posterior however posterior to the placenta is a large area of abnormal mixed echogenicity and therefore hemorrhage/abruption needs to be considered Discharge Plan Discharge Clinical Impression: Threatened Patient Disposition: Home, Self-Care Instructions: Threatened Miscarriage (ED) Additional Instructions: Avoid heavy exertion or lifting, avoid sexual intercourse. Follow-up with your OBGYN. Return for any new or worsened symptoms such as heavier bleeding, abdominal or pelvic pain Prescriptions: No Action Vitamin Plus Low Iron 27 mg iron- 1 mg tablet 1 tab PO DAILY Qty: 90 RF: 4 aspirin [Adult Aspirin Regimen] 81 mg tablet,delayed release (DR/EC) 162 mg PO DAILY Qty: 300 RF: 2
[2021-09-28 23:43] LABS: HCG Quantitative 31436 mIU/mL
[2021-09-29 01:05] LABS: Appearance Urine CLEAR; Color Urine YELLOW; Glucose Urine UA NEG (NEG); Leukocyte Esterase Urine NEG (NEG); Nitrite Urine NEG (NEG); Specific Gravity - Urine >= 1.030 (1.005-1.025); Urine Blood NEG (NEG); Urine Ketones NEG (NEG); Urine Protein NEG (NEG-TRACE)
[2021-09-29 02:07] VITALS: BP 136/92; PULSE 89; RESP 18; TEMP 37; O2SAT 99
== END 2021-09-29 02:13 | disposition home or self-care (01) ==
PROVIDERS: Emergency Provider Emergency Medicine; PCP Internal Medicine
DX: O20.0 Threatened abortion (principal); Z3A.15 15 weeks gestation of pregnancy
CPT/HCPCS: 36415; 76815; 80053; 81003; 84702; 85025; 86900; 86901; 99284

== ENCOUNTER 2021-10-01 13:58 | Outpatient (REF) | payer OTHER, SELFPAY ==
[2021-10-02 05:13] LABS: CT PCR NOT DETECTED (Not Detect.); NG PCR NOT DETECTED (Not Detect.)
== END 2021-10-01 13:59 | disposition home or self-care (01) ==
LOC: HO.LAB 13:58
PROVIDERS: Visit Provider Obstetrics & Gynecology
DX: O20.0 Threatened abortion (principal)
CPT/HCPCS: 87491; 87591; 99212

== ENCOUNTER 2021-10-07 11:14 | Outpatient (REF) | payer OTHER, SELFPAY ==
[2021-10-07 16:25] LABS: CT PCR NOT DETECTED (Not Detect.); NG PCR NOT DETECTED (Not Detect.)
[2021-10-08 09:18] LABS: BV Int Neg Control Negative (Negative); BV Int Pos Control Positive (Positive)
[2021-10-10 05:51] LABS: HPV mRNA E6/E7 rflx Not Detected (Not Detected)
== END 2021-10-07 11:15 | disposition home or self-care (01) ==
LOC: HO.LAB 11:14
PROVIDERS: Visit Provider Advanced Practice Midwife
DX: O99.212 Obesity complicating pregnancy, second trimester (principal); O99.810 Abnormal glucose complicating pregnancy; E66.9 Obesity, unspecified; O41.8X20 Other specified disorders of amniotic fluid and membranes, second trimester, not applicable or unspecified; Z3A.16 16 weeks gestation of pregnancy; Z11.51 Encounter for screening for human papillomavirus (HPV); Z87.59 Personal history of other complications of pregnancy, childbirth and the puerperium
CPT/HCPCS: 81003; 87480; 87491; 87510; 87591; 87624; 87660; 88142; 99212

== ENCOUNTER 2021-10-25 10:20 | Outpatient (REF) | payer OTHER, SELFPAY ==
--- NOTE | ~2021-10-25 | US_ITS ---
EXAMINATION: US OBSTETRICAL CLINICAL INFORMATION: 31-year-old at 18.5 weeks of gestation Screening for anomaly High BMI COMPARISON: 09/28/2021 TECHNIQUE: Real-time transabdominal ultrasound was performed using C1-5 megahertz transducer. FINDINGS: A single, active, fetus is seen in breech presentation. The placenta is posterior without previa, and the amniotic fluid volume is wnl. MEASUREMENTS: 1. Biparietal Diameter: 4.3 cm; 19.1 wks 2. Occipital Frontal Diameter: 5.3 cm 3. Head Circumference: 16.5 cm; 19.2 wks 4. Abdominal Circumference: 13.4 cm; 19.0 wks 5. Femur Length: 3.0 cm; 19.2 wks 6. Humerus Length: 3.1 cm; 20.2 wks 7. Tibia Length: 2.7 cm; 19.5 wks 8. Ulna Length: 2.3 cm; 18.3 wks 9. Lateral ventricle: 0.75 cm 10. Cerebellum: 1.8 cm; 18.5 wks 11. Cisterna Magna: 0.55 cm 12. Nuchal Fold: 3.12 mm 13. Heart Rate: 144 beats per minute Rt ovary: normal Lt ovary: normal Cervical length 3.9 cm on T/A. GESTATIONAL AGE: 1. Established GA: 18.5 wks 2. GA from [facility]: 19.2 wks ESTIMATED DATE OF DELIVERY: 1. Established LORNA: 03/23/2022 2. LORNA from [facility]: 03/19/2022 ANATOMY: The visualized anatomy includes but not limited to: 1. Cranium: Normal 2. Intracranial anatomy: cavum septum pellucidi, lateral ventricles, choroid plexus, cerebellum, posterior fossa, third and fourth ventricles. 3. face: orbits, lip/palate, profile, nasal bone 4. Heart: four-chamber view of the heart, ventricular septum, foramen ovale, pulmonary vein, left and right outflow tracts, three-vessel view, 3 vessel trachea view, aortic and ductal arches, situs.. 5. Diaphragm: Normal 6. Abdominal wall: Normal 7. Cord Insertion: Normal 8. Spine: Cervical, thoracic, lumbar, sacral. 9. Stomach: Normal size and shape 10. Right Kidney: Normal 11. Left Kidney: Normal 12. 3 vessel cord: Normal 13. Upper extremity: Open hands, fifth digit. 14. Lower extremity: Tibia, fibula, bilateral feet. 15. Bladder: Normal 16. Genitalia: Male, patient aware US/US OB /maternal detail IMPRESSION: 1. Single, living, intrauterine with appropriate biometry. 2. Normal survey DISCUSSION: I reviewed today's ultrasound findings. We discussed the limitations of ultrasound in diagnosing aneuploidy and other congenital abnormalities. I reviewed the differences between screening test and diagnostic test. Amniocentesis was discussed and declined. She was informed that the baseline incidence of congenital abnormalities is approximately 3-5%. Not all these conditions are diagnosable in utero. RECOMMENDATIONS: 1. Suggest a interval growth evaluation at approximately 28 weeks of gestation. Thank you for allowing me to participate in her care. Total time 20 minutes. The time spent was devoted to counseling the patient about the disease and diagnosis, coordinating care including reviewing her records, pertinent lab data and studies, as well as discussing diagnostic evaluation and workup, plan therapeutic interventions and future disposition of care. This includes any additional research needed to obtain further information in formulating the plan of care of this patient. This note was generated with a voice recognition program. Please excuse any errors which may have been overlooked during my review of this note. Sometimes these errors may affect the content or meaning of a given sentence.
== END 2021-10-25 10:21 | disposition home or self-care (01) ==
LOC: HO.US 10:20
PROVIDERS: Visit Provider Advanced Practice Midwife
DX: O41.8X20 Other specified disorders of amniotic fluid and membranes, second trimester, not applicable or unspecified (principal); O46.8X2 Other antepartum hemorrhage, second trimester; O99.212 Obesity complicating pregnancy, second trimester; O99.810 Abnormal glucose complicating pregnancy; O35.9XX0 Maternal care for (suspected) fetal abnormality and damage, unspecified, not applicable or unspecified; Z87.59 Personal history of other complications of pregnancy, childbirth and the puerperium; Z3A.18 18 weeks gestation of pregnancy
CPT/HCPCS: 76811

== ENCOUNTER → 2021-11-06 09:20 | Outpatient (BNVA) | payer OTHER, SELFPAY | PROVIDERS: Visit Provider Advanced Practice Midwife | DX: O09.892 Supervision of other high risk pregnancies, second trimester (principal); O99.810 Abnormal glucose complicating pregnancy; O99.212 Obesity complicating pregnancy, second trimester; E66.9 Obesity, unspecified; Z87.59 Personal history of other complications of pregnancy, childbirth and the puerperium; Z3A.20 20 weeks gestation of pregnancy | CPT/HCPCS: 81003; 99212 ==

== ENCOUNTER 2021-11-21 09:20 | Outpatient (REF) | payer OTHER, SELFPAY ==
[2021-11-21 10:54] LABS: Glucose Fasting 93 mg/dL (60-99)
[2021-11-21 11:50] LABS: Glucose 1 Hour 138 mg/dL
[2021-11-21 12:30] LABS: Glucose 2 Hour 137 mg/dL
[2021-11-21 13:48] LABS: Glucose 3 Hour 108 mg/dL
== END 2021-11-21 09:21 | disposition home or self-care (01) ==
LOC: HO.LAB 09:20
PROVIDERS: Visit Provider Advanced Practice Midwife
DX: O99.210 Obesity complicating pregnancy, unspecified trimester (principal); E66.9 Obesity, unspecified
CPT/HCPCS: 36415; 82951

== ENCOUNTER → 2021-12-04 10:18 | Outpatient (BNVA) | payer OTHER, SELFPAY | PROVIDERS: Visit Provider Advanced Practice Midwife | DX: O36.62X0 Maternal care for excessive fetal growth, second trimester, not applicable or unspecified (principal); Z3A.24 24 weeks gestation of pregnancy | CPT/HCPCS: 81003; 99212 ==

== ENCOUNTER 2021-12-06 08:59 | Outpatient (REF) | payer OTHER, SELFPAY ==
--- NOTE | ~2021-12-06 | US_ITS ---
EXAMINATION: OBSTETRICAL ULTRASOUND, Follow up HISTORY: 31 [id number] at 24.5 weeks of gestation Size greater than dates High BMI COMPARISON: 10/25/2021 TECHNIQUE: Real time transabdominal imaging with color and M-mode Doppler. PRESENTATION: Vertex PLACENTA LOCATION: Posterior without previa AMNIOTIC FLUID: Within normal limits MEASUREMENTS: 1. Biparietal Diameter: 5.9 cm; 24.1 wks 2. Head Circumference: 22.9 cm; 25.0 wks 3. Abdominal Circumference: 19.8 cm; 20.4 wks 4. Femur Length: 4.6 cm; 25.1 wks 5. Heart Rate: 149 beats per minute WEIGHT: EFW: 724 grams (1 lbs 10 oz) -- 39 %. GESTATIONAL AGE: 1. Established GA: 24.5 wks 2. GA from [facility]: 24.6 wks ESTIMATED DATE OF DELIVERY: 1. Established LORNA: 03/23/2022 2. LORNA from [facility]: 03/22/2022 US/US OB follow up IMPRESSION: 1. A single active fetus is in vertex presentation 2. Size equals dates 3. Normal amniotic fluid volume I reviewed today's ultrasound findings and discussed the limitations of ultrasound and estimating weights. Recommend monthly interval growth evaluation as her fundal height assessment will not be reliable. Thank you very much for this referral. Total time 20 minutes. The time spent was devoted to counseling the patient about the disease and diagnosis, coordinating care including reviewing her records, pertinent lab data and studies, as well as discussing diagnostic evaluation and workup, plan therapeutic interventions and future disposition of care. This includes any additional research needed to obtain further information in formulating the plan of care of this patient. This note was generated with a voice recognition program. Please excuse any errors which may have been overlooked during my review of this note. Sometimes these errors may affect the content or meaning of a given sentence.
== END 2021-12-06 09:00 | disposition home or self-care (01) ==
LOC: HO.US 08:59
PROVIDERS: Visit Provider Advanced Practice Midwife
DX: O36.62X0 Maternal care for excessive fetal growth, second trimester, not applicable or unspecified (principal); Z3A.24 24 weeks gestation of pregnancy
CPT/HCPCS: 76816

== ENCOUNTER → 2022-01-01 10:39 | Outpatient (BNVA) | payer OTHER, SELFPAY | PROVIDERS: Visit Provider Advanced Practice Midwife | DX: O99.810 Abnormal glucose complicating pregnancy (principal); O99.213 Obesity complicating pregnancy, third trimester; E66.9 Obesity, unspecified; O26.843 Uterine size-date discrepancy, third trimester; O46.8X3 Other antepartum hemorrhage, third trimester; Z3A.28 28 weeks gestation of pregnancy | CPT/HCPCS: 81003; 99212 ==

== ENCOUNTER 2022-01-03 10:17 | Outpatient (REF) | payer OTHER, SELFPAY ==
--- NOTE | ~2022-01-03 | US_ITS ---
EXAMINATION: OBSTETRICAL ULTRASOUND, Follow up HISTORY: 31-year-old at the 28.5 weeks of gestation Size greater than dates High BMI COMPARISON: 12/06/2021 TECHNIQUE: Real time transabdominal imaging with color and M-mode Doppler. PRESENTATION: Vertex PLACENTA LOCATION: Posterior without previa AMNIOTIC FLUID: AUDREY 15 cm MEASUREMENTS: 1. Biparietal Diameter: 7.6 cm; 30.3 wks 2. Head Circumference: 27.97 cm; 30.5 wks 3. Abdominal Circumference: 25.8 cm; 30.0 wks 4. Femur Length: 5.8 cm; 30.2 wks 5. Heart Rate: 147 beats per minute WEIGHT: EFW: 1524 grams (3 lbs 6 oz) -- 87 %. BIOPHYSICAL PROFILE: Motion: 2 Tone: 2 Breathin Amniotic Fluid: 2 Total score: 8/8 GESTATIONAL AGE: 1. Established GA: 28.5 wks 2. GA from [facility]: 30.3 wks ESTIMATED DATE OF DELIVERY: 1. Established LORNA: 03/23/2022 2. LORNA from [facility]: 03/11/2022 US/US OB follow up IMPRESSION: 1. A single active fetus is in vertex presentation 2. Size equals dates, EFW 87% 3. Normal AUDREY and BPP score I reviewed today's ultrasound findings and informed her that although the EFW corresponds to 87th percentile, this does not predict macrosomia at term. We discussed the limitations of ultrasound and estimating weights. Her first the child had weight of 8 1/2 pounds. She reports having had normal 1 hour glucose screen earlier in gestation. She is to have a repeat screening scheduled. I recommend continued monthly growth evaluation since her fundal height assessment will not be reliable. Thank you very much for this referral. Total time 20 minutes. The time spent was devoted to counseling the patient about the disease and diagnosis, coordinating care including reviewing her records, pertinent lab data and studies, as well as discussing diagnostic evaluation and workup, plan therapeutic interventions and future disposition of care. This includes any additional research needed to obtain further information in formulating the plan of care of this patient. This note was generated with a voice recognition program. Please excuse any errors which may have been overlooked during my review of this note. Sometimes these errors may affect the content or meaning of a given sentence.
== END 2022-01-03 10:18 | disposition home or self-care (01) ==
LOC: HO.US 10:17
PROVIDERS: Visit Provider Advanced Practice Midwife
DX: O26.893 Other specified pregnancy related conditions, third trimester (principal); O41.8X30 Other specified disorders of amniotic fluid and membranes, third trimester, not applicable or unspecified; O46.8X3 Other antepartum hemorrhage, third trimester; O99.213 Obesity complicating pregnancy, third trimester; E66.9 Obesity, unspecified; O99.810 Abnormal glucose complicating pregnancy; Z3A.28 28 weeks gestation of pregnancy
CPT/HCPCS: 76816

== ENCOUNTER → 2022-01-15 10:55 | Outpatient (BNVA) | payer OTHER, SELFPAY | PROVIDERS: Visit Provider Advanced Practice Midwife | DX: O09.293 Supervision of pregnancy with other poor reproductive or obstetric history, third trimester (principal); O99.213 Obesity complicating pregnancy, third trimester; E66.9 Obesity, unspecified; O99.013 Anemia complicating pregnancy, third trimester; D64.9 Anemia, unspecified; Z3A.30 30 weeks gestation of pregnancy | CPT/HCPCS: 81003; 99212 ==

== ENCOUNTER 2022-01-28 09:23 | Outpatient (REF) | payer OTHER, SELFPAY ==
[2022-01-28 11:51] LABS: Hematocrit 34.3 % (37.0-47.0); Hemoglobin 11.2 g/dl (12.0-16.0); Mean Corpuscular HGB Conc 32.7 g/dl (31.0-35.0); Mean Corpuscular Hemoglobin 24.1 pg (27.0-33.0); Mean Corpuscular Volume 73.9 fL (80.0-98.0); Platelet Count 275 X10*3/uL (160-400); Red Blood Count 4.64 X10*6/uL (4.20-5.50); Red Cell Distribution Width 15.9 % (11.0-16.0); White Blood Count 12.6 X10*3/uL (4.8-10.8)
[2022-01-28 12:24] LABS: Glucose 1 Hour PP 50gm Dose 120 mg/dL (60-140)
[2022-01-29 12:45] LABS: Syphilis Screen Nonreactive (Nonreactive)
== END 2022-01-28 09:24 | disposition home or self-care (01) ==
LOC: HO.LAB 09:23
PROVIDERS: Visit Provider Advanced Practice Midwife
DX: O99.213 Obesity complicating pregnancy, third trimester (principal); E66.9 Obesity, unspecified; O99.810 Abnormal glucose complicating pregnancy; Z3A.00 Weeks of gestation of pregnancy not specified
CPT/HCPCS: 36415; 85027; 86780

== ENCOUNTER → 2022-01-30 13:02 | Outpatient (BNVA) | payer OTHER, SELFPAY | PROVIDERS: Visit Provider Advanced Practice Midwife | DX: O26.843 Uterine size-date discrepancy, third trimester (principal); Z3A.32 32 weeks gestation of pregnancy | CPT/HCPCS: 81003; 99212 ==

== ENCOUNTER 2022-02-07 10:18 | Outpatient (REF) | payer OTHER, SELFPAY ==
--- NOTE | ~2022-02-07 | US_ITS ---
EXAMINATION: US OBSTETRICAL FOLLOW UP WITH BIOPHYSICAL PROFILE CLINICAL INFORMATION: Size and dates. COMPARISON: Ultrasound OB 01/03/2022. TECHNIQUE: Real time transabdominal imaging with color and M-mode Doppler. POSITION: Cephalic PLACENTA: Posterior. AMNIOTIC FLUID INDEX: 19.5 cm. MEASUREMENTS: The initial dating ultrasound dated provided an estimated date of delivery of 03/23/2022. This would project today to a of 33 weeks. biometric measurements are as follows: Biparietal Diameter: 8.43 cm (34 weeks 0 days) Occipital Frontal Diameter: 11.15 cm (36 weeks and 4 days) Head Circumference: 31.16 cm (35 weeks and 0 days) Abdominal Circumference: 30.49 cm (34 weeks 4 days) Femur Length: 6.91 cm (35 weeks 4 days) The standard deviation for the above measurements is +/- 3 weeks. ESTIMATED WEIGHT: The EFW is 2499 grams +/- 365 grams (5 lbs 8 oz +/- 13 oz). This is at the LMP 73 percentile. BIOPHYSICAL PROFILE: Biophysical profile is performed over 30 minutes with assessment of breathing, gross body movement, tone, and qualitative amniotic fluid volume. Each matrix is scored 0 or 2, depending if the metric is present. Maximum total score possible is 8. Motion: 2 Tone: 2 Breathin Amniotic Fluid: 2 Total score: 8 HR: 150 bpm US/US OB follow up IMPRESSION: 1. Single intrauterine gestation in cephalic position with posterior placenta. 2. EFW: 5 pounds 8 ounces 3. AUDREY: 19.5 cm. 4. BPP score: 8 (scale 0-8).
== END 2022-02-07 10:19 | disposition home or self-care (01) ==
LOC: HO.US 10:18
PROVIDERS: Visit Provider Advanced Practice Midwife
DX: O26.843 Uterine size-date discrepancy, third trimester (principal); Z3A.33 33 weeks gestation of pregnancy
CPT/HCPCS: 76816

== ENCOUNTER → 2022-02-13 10:48 | Outpatient (BNVA) | payer OTHER, SELFPAY | PROVIDERS: Visit Provider Advanced Practice Midwife | DX: O26.843 Uterine size-date discrepancy, third trimester (principal); Z3A.34 34 weeks gestation of pregnancy | CPT/HCPCS: 81003; 99212 ==

== ENCOUNTER 2022-02-27 10:06 | Outpatient (REF) | payer OTHER, SELFPAY ==
[2022-02-28 01:20] LABS: CT PCR NOT DETECTED (Not Detect.); NG PCR NOT DETECTED (Not Detect.)
== END 2022-02-27 10:07 | disposition home or self-care (01) ==
LOC: HO.LAB 10:06
PROVIDERS: Visit Provider Advanced Practice Midwife
DX: Z34.93 Encounter for supervision of normal pregnancy, unspecified, third trimester (principal); Z3A.36 36 weeks gestation of pregnancy
CPT/HCPCS: 87081; 87147; 87491; 87591; 99212

== ENCOUNTER → 2022-03-06 15:09 | Outpatient (BNVA) | payer OTHER, SELFPAY | PROVIDERS: Visit Provider Advanced Practice Midwife | DX: Z34.83 Encounter for supervision of other normal pregnancy, third trimester (principal); Z3A.37 37 weeks gestation of pregnancy | CPT/HCPCS: 81003; 99212 ==

== ENCOUNTER 2022-03-07 13:02 | Outpatient (REF) | payer OTHER, SELFPAY ==
--- NOTE | ~2022-03-07 | US_ITS ---
EXAMINATION: OBSTETRICAL ULTRASOUND, Follow up HISTORY: 32-year-old at 37.5 weeks of gestation Size greater than dates COMPARISON: 02/07/2022 TECHNIQUE: Real time transabdominal imaging with color and M-mode Doppler. PRESENTATION: Vertex PLACENTA LOCATION: Right lateral, posterior AMNIOTIC FLUID: AUDREY 12.8 cm MEASUREMENTS: 1. Biparietal Diameter: 8.97 cm; 36.3 wks 2. Head Circumference: 32.9 cm; 37.4 wks 3. Abdominal Circumference: 33.7 cm; 37.5 wks 4. Femur Length: 7.4 cm; 37.5 wks 5. Heart Rate: 140 beats per minute WEIGHT: EFW: 3217 grams (7 lbs 1 oz) -- 54 %. BIOPHYSICAL PROFILE: Motion: 2 Tone: 2 Breathin Amniotic Fluid: 2 Total score: 8/8 GESTATIONAL AGE: 1. Established GA: 37.2 wks 2. GA from [facility]: 37.3 wks ESTIMATED DATE OF DELIVERY: 1. Established LORNA: 03/23/2022 2. LORNA from [facility]: 03/25/2022 US/US OB follow up IMPRESSION: 1. A single active fetus is in vertex presentation 2. Size equals dates 3. Reassuring BPP and AUDREY Thank you very much for this referral. This note was generated with a voice recognition program. Please excuse any errors which may have been overlooked during my review of this note. Sometimes these errors may affect the content or meaning of a given sentence.
== END 2022-03-07 13:03 | disposition home or self-care (01) ==
LOC: HO.US 13:02
PROVIDERS: Visit Provider Advanced Practice Midwife
DX: O26.843 Uterine size-date discrepancy, third trimester (principal); Z3A.37 37 weeks gestation of pregnancy
CPT/HCPCS: 76816

== ENCOUNTER → 2022-03-13 13:49 | Outpatient (BNVA) | payer OTHER, SELFPAY | PROVIDERS: Visit Provider Obstetrics & Gynecology | DX: O99.210 Obesity complicating pregnancy, unspecified trimester (principal); Z3A.38 38 weeks gestation of pregnancy | CPT/HCPCS: 59025; 99212 ==

== ENCOUNTER 2022-03-14 14:03 | Outpatient (REF) | payer OTHER, SELFPAY ==
--- NOTE | ~2022-03-14 | US_ITS ---
EXAMINATION: US OBSTETRICAL (BIOPHYSICAL PROFILE) CLINICAL INFORMATION: Obesity COMPARISON: Previous exam 03/07/2022 TECHNIQUE: Ultrasound of the pelvis is performed. Biophysical profile is performed over 30 minutes with assessment of breathing, gross body movement, tone, and qualitative amniotic fluid volume. Each matrix is scored 0 or 2, depending if the metric is present. Maximum total score possible is 8. Examination is not intended to assess for anomalies. FINDINGS: POSITION: Cephalic PLACENTA: Posterior/right lateral. Grade 2. AMNIOTIC FLUID INDEX: 11.7 cm CARDIAC ACTIVITY: 156 beats per minute BIOPHYSICAL PROFILE: Motion: 2 Tone: 2 Breathin Amniotic Fluid: 2 Total score: 8 US/US OB biophysical profile IMPRESSION: 1. Single intrauterine gestation in cephalic position with posterior/right lateral placenta. 2. Total biophysical score is 8 (scale 0-8). 3. Amniotic fluid index 11.7 cm. 4. cardiac activity 156 beats per minute.
== END 2022-03-14 14:04 | disposition home or self-care (01) ==
LOC: HO.US 14:03
PROVIDERS: Visit Provider Obstetrics & Gynecology
DX: O99.210 Obesity complicating pregnancy, unspecified trimester (principal)
CPT/HCPCS: 76819

== ENCOUNTER → 2022-03-19 10:05 | Outpatient (BNVA) | payer OTHER, SELFPAY | PROVIDERS: Visit Provider Advanced Practice Midwife | DX: O99.213 Obesity complicating pregnancy, third trimester (principal); O26.843 Uterine size-date discrepancy, third trimester; O09.293 Supervision of pregnancy with other poor reproductive or obstetric history, third trimester; O99.820 Streptococcus B carrier state complicating pregnancy; O99.013 Anemia complicating pregnancy, third trimester; D64.9 Anemia, unspecified; Z3A.39 39 weeks gestation of pregnancy | CPT/HCPCS: 59025; 99212 ==

== ENCOUNTER 2022-03-21 10:24 | Outpatient (REF) | payer OTHER, SELFPAY ==
--- NOTE | ~2022-03-21 | US_ITS ---
EXAMINATION: OBSTETRICAL ULTRASOUND, Follow up HISTORY: 32-year-old at the 39.5 weeks of gestation High BMI Size date discrepancy COMPARISON: 03/14/2022 TECHNIQUE: Real time transabdominal imaging with color and M-mode Doppler. PRESENTATION: Vertex PLACENTA LOCATION: Posterior without previa AMNIOTIC FLUID: AUDREY 12.6 cm MEASUREMENTS: 1. Biparietal Diameter: 8.8 cm; 35.3 wks 2. Head Circumference: 33.9 cm; 39.0 wks 3. Abdominal Circumference: 35.0 cm; 39.0 wks 4. Femur Length: 7.8 cm; 40.1 wks 5. Heart Rate: 142 beats per minute WEIGHT: EFW: 3571 grams (7 lbs 14 oz) -- 50 %. BIOPHYSICAL PROFILE: Motion: 2 Tone: 2 Breathin Amniotic Fluid: 2 Total score: 8/8 GESTATIONAL AGE: 1. Established GA: 39.5 wks 2. GA from [facility]: 38.3 wks ESTIMATED DATE OF DELIVERY: 1. Established LORNA: 03/23/2022 2. LORNA from [facility]: 04/01/2022 US/US OB follow up IMPRESSION: 1. A single active fetus is seen in vertex presentation 2. Size equals dates 3. Reassuring biophysical profile Thank you very much for this referral. This note was generated with a voice recognition program. Please excuse any errors which may have been overlooked during my review of this note. Sometimes these errors may affect the content or meaning of a given sentence.
== END 2022-03-21 10:25 | disposition home or self-care (01) ==
LOC: HO.US 10:24
PROVIDERS: Visit Provider Obstetrics & Gynecology
DX: O99.213 Obesity complicating pregnancy, third trimester (principal); Z3A.39 39 weeks gestation of pregnancy
CPT/HCPCS: 59025; 76816; 99212

== ENCOUNTER → 2022-06-17 15:33 | Outpatient (BNVA) | payer OTHER, SELFPAY | PROVIDERS: Visit Provider Advanced Practice Midwife | DX: Z39.2 Encounter for routine postpartum follow-up (principal); Z13.31 Encounter for screening for depression; Z30.42 Encounter for surveillance of injectable contraceptive; N81.2 Incomplete uterovaginal prolapse; F17.210 Nicotine dependence, cigarettes, uncomplicated | CPT/HCPCS: 96372; 99212 ==

== ENCOUNTER 2022-07-28 18:42 | Emergency (ER) | payer OTHER, SELFPAY ==
[2022-07-28 18:56] VITALS: BP 131/74; PULSE 88; RESP 18; TEMP 36.4; O2SAT 94; BMI 39.6
--- NOTE | 2022-07-28 18:56 | ED_ITS ---
HPI - General Adult General Stated complaint: strep throat; sore throat, can't swallow Related Data Previous Rx's Medication Instructions Recorded medroxyprogesterone 150 mg/mL 150 mg IM Q12W #1 mL 06/13/22 intramuscular suspension (Depo-Provera) Allergies Allergy/AdvReac Type Severity Reaction Status Date / Time yaneth Allergy Mild Shortness Uncoded 06/17/22 16:09 of Breath PMFSH Past Medical History Medical History Cervical cancer screening Cholecystectomy planned No known health problems Smoking Family History Family History Mother Lymphoma Diabetes Maternal Grandfather Colon cancer Father Diabetes Maternal Grandmother Pulmonary disease Social History Social History (Updated 06/17/22 @ 16:30 by Marlene Ramirez) Household Members: Significant Other and Children Housing: Apartment Alcohol intake: former Patient Tobacco Use Status: Never used Tobacco Tobacco use type: Cigarette Cigarette Packs Per Day: 1 Years Smoked: 10 Agree to transfusion: Yes Current occupational status: employed 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
[2022-07-28 19:19] LABS: Strep A Nucleic Acid Positive (Negative)
[2022-07-28 19:26] LABS: COVID-19 Test Negative (Negative); IDNOW Serial# BCCEAD1C
--- NOTE | 2022-07-28 20:07 | ED_ITS ---
HPI - General Adult General Chief complaint: General Medical Stated complaint: strep throat; sore throat, can't swallow Time Seen by Provider: 07/28/22 19:51 Source: patient Mode of arrival: ambulatory Limitations: no limitations History of Present Illness HPI narrative: 32 yold female presents to the ED for white spots in back of throat and sore throat since yesterday. patient denies any drooling, change in voice, chest pain, shortness of breat, or weakness. Related Data Previous Rx's Medication Instructions Recorded medroxyprogesterone 150 mg/mL 150 mg IM Q12W #1 mL 06/13/22 intramuscular suspension (Depo-Provera) amoxicillin 875 mg-potassium 1 tab PO Q12H 10 days #20 tabs 07/28/22 clavulanate 125 mg tablet naproxen 500 mg tablet 500 mg PO BID PRN pain 10 days #20 07/28/22 tabs Allergies Allergy/AdvReac Type Severity Reaction Status Date / Time yaneth Allergy Mild Shortness Uncoded 06/17/22 16:09 of Breath Review of Systems Review of Systems: SOre throat Yes all other systems are reviewed and are negative [facility] Past Medical History Medical History Cervical cancer screening Cholecystectomy planned No known health problems Smoking Family History Family History Mother Lymphoma Diabetes Maternal Grandfather Colon cancer Father Diabetes Maternal Grandmother Pulmonary disease Social History Social History (Updated 06/17/22 @ 16:30 by Marlene Ramirez) Household Members: Significant Other and Children Housing: Apartment Alcohol intake: former Patient Tobacco Use Status: Never used Tobacco Tobacco use type: Cigarette Cigarette Packs Per Day: 1 Years Smoked: 10 Agree to transfusion: Yes Advance Directives: No Advance Directives Information Provided: No Current occupational status: employed 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 Physical Exam ED Vital Signs: Vital Signs - 24 hr 07/28/22 18:56 Temperature 97.6 F Pulse Rate 88 Respiratory Rate 18 Blood Pressure 131/74 Pulse Oximetry 94 Oxygen Delivery Method Room Air BMI result Body Mass Index 39.6 Const General: cooperative, healthy appearing, comfortable, no acute distress, well developed, alert, awake and Physically active Orientation/consciousness: oriented to person, oriented to place, oriented to time and patient oriented x3 HENMT Head: Yes normal to inspection, Yes No palpable skull fracture present, Yes normocephalic, Yes atraumatic and No abrasion Throat: Yes posterior oropharynx normal, Yes uvula midline and Yes abnormal tonsil (bilateral tonsillar exudates. Negative for signs of Peritonsillar abscess) Eyes General: appearance normal, both eyes and all related structures Neck Neck: Yes normal visual inspection, Yes full ROM, Yes no lymphadenopathy, Yes no meningeal signs, Yes trachea midline, Yes supple, No anterior neck swelling and No tender Chest Chest palpation & inspection: normal inspection of the chest and normal palpation of entire chest wall Resp Effort & Inspection: normal respiratory effort and able to speak in complete sentences Auscultation: clear to auscultation bilaterally Cardio Jugular venous distension: no JVD Heart sounds: S1 normal heart sound present and S2 normal heart sound present GI Inspection: Yes normal to inspection and No abdominal wall ecchymosis Palpation (GI): Soft to palpation, not firm, nontender, no guarding and not rigid General: No CVA tenderness and Yes no CVA tenderness Back/Spine/Pelvis Back: no CVA tenderness, No CVA tenderness and No back tenderness Skin General skin exam: no rashes or lesions noted and elasticity normal Neuro General: oriented to person, oriented to place, oriented to time, patient oriented x3, gait normal, tone normal and no meningeal signs Cranial nerves: Yes CN's II-XII intact bilaterally Extrem General: Yes normal to inspection and Yes full ROM Psych Appearance: grossly normal, well kempt and not disheveled Course Course Course Narrative: Covid and strep test ordered Reevaluation(s) Reevaluation #1: positive for strep and discharged with antibiotics. Time: 20:19 Medical Decision Making [facility] Narrative Medical decision making narrative: Strep tonsillitis Lab Data Labs: Lab Results 07/28/22 07/28/22 Range/Units 19:03 19:03 COVID-19 (AMBROSIO) Negative (Negative) COVID-19 Clin Com See Note S. pyogenes GrpA FLY Positive A (Negative) Discharge Plan Discharge Clinical Impression: Strep tonsillitis Patient Disposition: Home, Self-Care Instructions: Strep Throat (ED) Additional Instructions: Return to the ED for any drooling, change in voice, neck swelling, chest pain, shortness of breath, inability to tolerate solid liquids and foods or any other concerning symptoms.. Please follow up wtih PCP. Prescriptions: New amoxicillin-pot clavulanate 875-125 mg tablet 1 tab PO Q12H 10 Days Qty: 20 0RF naproxen 500 mg tablet 500 mg PO BID PRN (Reason: pain) 10 Days Qty: 20 0RF No Action medroxyprogesterone [Depo-Provera] 150 mg/mL suspension 150 mg IM Q12W Qty: 1 5RF Stand Alone Forms: Work/School Release Interventions: ED Discharge Assessment Last Done: 07/28/22 20:34 Discharge Date/Time: 07/28/22 20:35 Print Language: [place]
== END 2022-07-28 20:35 | disposition home or self-care (01) ==
PROVIDERS: Emergency Medicine; Emergency Provider Internal Medicine
DX: J02.0 Streptococcal pharyngitis (principal); Z20.822 Contact with and (suspected) exposure to COVID-19; F17.200 Nicotine dependence, unspecified, uncomplicated
CPT/HCPCS: 87635; 87651; 99282; 99283

== ENCOUNTER 2024-02-10 10:53 | Outpatient (AMB) | payer OTHER, SELFPAY ==
--- NOTE | 2024-02-10 11:26 | MHC.OFFVIS ---
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 She had her last period January 30 and has not had sex since before her. She definitely wants to get back on control as soon as she can we discussed the possibility of starting the Depo-Provera now since that is what she wants versus waiting for her next. Discussed that she would be more likely to have irregular bleeding if she does not started at the right time since she is already 10 days into her cycle the lining of her uterus has already started building up. Also discussed the option of progestin only control pills but again she has uncertain to the remembered take them she is busy with her kids and work. Given all this she is decided to start the Depo-Provera but will wait for her next menses to start and will abstain until then. I sent a prescription for Depo-Provera to pharmacy and she is to call when her periods starts and be seen at the hospital by the RN for the injection. In addition I discussed her history of uterine prolapse. She says she is referred to [facility] and they had recommended hysterectomy for her she says it is still bad it does not interfere with sex that she can feel it all of the time. I offered to place a referral for physical therapy for pelvic floor therapy but she said she will think about she has an appointment for an annual exam Pap smear next month so she will think about it and if she decides to some that it could placed then as well. she says Kegel's in general do not help her. [facility] Medical History (Updated 02/10/24 @ 12:47 by Michelle Nettles CNM) Smoking Cervical cancer screening No known health problems Cholecystectomy planned Family History Mother Lymphoma Diabetes Maternal Grandfather Colon cancer Father Diabetes Maternal Grandmother Pulmonary disease Social History (Updated 06/17/22 @ 16:30 by Marlene Ramirez) Household Members: Significant Other and Children Both parents involved: Yes Housing: Apartment Alcohol intake: former Patient Tobacco Use Status: Never used Tobacco Tobacco use type: Cigarette Cigarette Packs Per Day: 1 Years Smoked: 10 Agree to transfusion: Yes Current occupational status: employed 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 Female Reproductive History Menstrual Age of Menarche: 13 Duration of menses: 3-5 days Date of last menstrual period: 01/31/24 control method: none Total pregnancies: 6 Full term: 3 Date of last pap smear: 10/08/21 (negative) History of abnormal pap smear: No Physical Exam Vital Signs: Last Vital Signs BP 110/70 02/10/24 11:27 BMI result Body Mass Index 38.0 Assessment & Plan Assessment & Plan (1) Smoking: Code(s): F17.200 - Nicotine dependence, unspecified, uncomplicated Category: Social Hx (2) Cervical prolapse: Comment: Had considered surgical intervention at [facility](was considering hysterectomy), offered pelvic floor PT she will consider.... Code(s): N81.2 - Incomplete uterovaginal prolapse Category: Medical (3) Obesity: Comment: Has lost about 30 lb in last 6 months with intermittent fasting Code(s): E66.9 - Obesity, unspecified Category: Medical (4) control counseling: Comment: Wants to restart Depo, will start with next menses. Code(s): Z30.09 - Encounter for other general counseling and advice on contraception Category: Medical Plan Patient is here to discuss control she was on Depo-Provera before and she would like to get back on it again she also was considering pills but she has not sure she remember to take them all the time she does smoke cigarettes. She had her last period January 30 and has not had sex since before her. She definitely wants to get back on control as soon as she can we discussed the possibility of starting the Depo-Provera now since that is what she wants versus waiting for her next. Discussed that she would be more likely to have irregular bleeding if she does not started at the right time since she is already 10 days into her cycle the lining of her uterus has already started building up. Also discussed the option of progestin only control pills but again she has uncertain to the remembered take them she is busy with her kids and work. Given all this she is decided to start the Depo-Provera but will wait for her next menses to start and will abstain until then. I sent a prescription for Depo-Provera to pharmacy and she is to call when her periods starts and be seen at the hospital by the RN for the injection. In addition I discussed her history of uterine prolapse. She says she is referred to [facility] and they had recommended hysterectomy for her she says it is still bad it does not interfere with sex that she can feel it all of the time. I offered to place a referral for physical therapy for pelvic floor therapy but she said she will think about she has an appointment for an annual exam Pap smear next month so she will think about it and if she decides to some that it could placed then as well. she says Kegel's in general do not help her. I reviewed the side effects of Depo-Provera in some detail we also discussed other options including IUDs. Discussed in particular the propensity for weight gain with the Depo-Provera she has been working hard on weight loss and has lost about 30 +lb in the last 6 months by doing intermittent fasting. I congratulated her on her healthy weight loss. Medications: New medroxyprogesterone (Depo-Provera) Start at beginning of Next menses 150 mg IM Q12W 1 mL 5RF Coding Level of Care Code Est Pt Level 3 (00531) Diagnoses Smoking F17.200 Cervical prolapse N81.2 Obesity E66.9 control counseling Z30.09
[2024-02-10 11:27] VITALS: BP 110/70; BMI 38.0
== END 2024-02-10 12:18 | disposition home or self-care (01) ==
PROVIDERS: Visit Provider Advanced Practice Midwife
DX: F17.200 Nicotine dependence, unspecified, uncomplicated (principal); N81.2 Incomplete uterovaginal prolapse; E66.9 Obesity, unspecified; Z30.09 Encounter for other general counseling and advice on contraception
CPT/HCPCS: 99213

== ENCOUNTER → 2024-02-10 10:53 | Outpatient (BNVA) | payer OTHER, SELFPAY | PROVIDERS: Visit Provider Advanced Practice Midwife | DX: N81.2 Incomplete uterovaginal prolapse (principal); E66.9 Obesity, unspecified; Z68.38 Body mass index [BMI] 38.0-38.9, adult; Z30.09 Encounter for other general counseling and advice on contraception | CPT/HCPCS: 99212 ==

== ENCOUNTER 2024-02-26 11:09 | Outpatient (AMB) | payer OTHER, SELFPAY ==
--- NOTE | 2024-02-26 11:32 | MHC.OFFVIS ---
Intake Visit Reasons: DEPO Allergies yaneth Allergy (Mild, Uncoded 03/24/24 13:35) Shortness of Breath Medication List - Last Reconciled 02/26/24 by Annalisa Clark LPN medroxyprogesterone (Depo-Provera) 150 mg IM Q12W [facility] Medical History (Updated 05/18/24 @ 11:15 by Jocelyn Eubanks) Encounter for management and injection of depo-Provera Smoking Cervical cancer screening No known health problems Cholecystectomy planned Surgical History (Updated 03/24/24 @ 13:40 by JINNY Hickey) Hx of cholecystectomy Family History Mother Lymphoma Diabetes Maternal Grandfather Colon cancer Father Diabetes Maternal Grandmother Pulmonary disease Social History (Updated 03/24/24 @ 13:40 by JINNY Hickey) Household Members: Significant Other and Children Both parents involved: Yes Housing: Apartment Alcohol intake: former Patient Tobacco Use Status: Current everyday Tobacco user Tobacco use type: Cigarette Cigarettes Per Day: 10 Years Smoked: 10 Agree to transfusion: Yes Patient : No Current occupational status: employed 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 Date of last menstrual period: 02/26/24 Menstrual pattern since last injection has been: Normal Irregular bleeding?: No Breast lumps or other breast changes?: No Changes in weight or appetite?: No Depression or changes in mood?: No Abnormal hair growth or loss?: No Skin problems (rash, acne, discoloration)?: No Pain at the injection site?: No Headaches?: No Nervousness?: No Abdominal pain or cramping?: No Dizziness or nausea?: No Fatigue or weakness?: No Decrease in sexual drive?: No Chest pain or shortness of breath?: No Swelling in arms or legs?: No Form completed by?: Annalisa Clark LPN Office Meds Depo-Provera 150 mg/mL intramuscular syringe Performing Provider: Michelle Nettles CNM Performing Location: [facility] Administered by: Annalisa Clark LPN on 02/26/24 11:30 Dose Route Admin Location Dispensed Lot Number Expiration Date NDC Electrician Elevator Maintenance 150 mg IM L deltoid 1 mL [id number] 04/13/26 01391-229-76 Assessment & Plan Assessment & Plan Orders: Orders AMB Medroxyprogesterone Injection Patient Supplied 02/26/24 Z30.42 - Encounter for surveillance of injectable contraceptive Coding Level of Care Code Established Pt Est Pt Level 1 (04500) Patient Type Established Comment nurse visit only
--- NOTE | 2024-05-25 13:42 | AM.OFFVISNUR ---
Intake Visit Reasons: DEPO Allergies yaneth Allergy (Mild, Uncoded 03/24/24 13:35) Shortness of Breath Medication List - Last Reconciled 02/26/24 by Annalisa Clark LPN medroxyprogesterone (Depo-Provera) 150 mg IM Q12W Office Procedures Depo Questionnaire If YES to any of the following questions, please consult a provider. Date of last menstrual period: 02/26/24 Menstrual pattern since last injection has been: Normal Irregular bleeding?: No Breast lumps or other breast changes?: No Changes in weight or appetite?: No Depression or changes in mood?: No Abnormal hair growth or loss?: No Skin problems (rash, acne, discoloration)?: No Pain at the injection site?: No Headaches?: No Nervousness?: No Abdominal pain or cramping?: No Dizziness or nausea?: No Fatigue or weakness?: No Decrease in sexual drive?: No Chest pain or shortness of breath?: No Swelling in arms or legs?: No Form completed by?: Annalisa Clark LPN Office Meds Depo-Provera 150 mg/mL intramuscular syringe Performing Provider: Michelle Nettles CNM Performing Location: [facility] Administered by: Annalisa Clark LPN on 02/26/24 11:30 Dose Route Admin Location Dispensed Lot Number Expiration Date FOR[facility] NAMED [facility] Financial Advisor Trainee 150 mg IM L deltoid 1 mL [id number] 04/13/26 [id number] Assessment & Plan Assessment & Plan Orders: Orders AMB Medroxyprogesterone Injection Patient Supplied 02/26/24 Z30.42 - Encounter for surveillance of injectable contraceptive
== END 2024-02-26 12:22 | disposition home or self-care (01) ==
LOC: HO.HWS 11:09
PROVIDERS: Visit Provider Advanced Practice Midwife
DX: Z30.42 Encounter for surveillance of injectable contraceptive (principal)

== ENCOUNTER → 2024-02-26 11:09 | Outpatient (BNVA) | payer OTHER, SELFPAY | PROVIDERS: Visit Provider Advanced Practice Midwife | DX: Z30.42 Encounter for surveillance of injectable contraceptive (principal) | CPT/HCPCS: 96372; J1050 ==

== ENCOUNTER 2024-03-19 13:29 | Emergency (ER) | payer OTHER, SELFPAY ==
--- NOTE | ~2024-03-19 | XR_ITS ---
EXAMINATION: XR LUMBOSACRAL SPINE CLINICAL INFORMATION: Atraumatic pain left greater than right COMPARISON: None available. TECHNIQUE: Three views of the lumbosacral spine. FINDINGS: The vertebral bodies and posterior elements are normal. The disc spaces are preserved and the vertebral alignment is normal. The paraspinal soft tissues are normal. XR/XR lumbar spine 2-3V IMPRESSION: Unremarkable examination.
[2024-03-19 13:44] VITALS: BP 124/63; PULSE 84; RESP 16; TEMP 36.5; O2SAT 98; BMI 38.0
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
[2024-03-19 16:53] LABS: Appearance Urine Clear; Color Urine Yellow; Glucose Urine UA Negative (Negative); Leukocyte Esterase Urine Negative (Negative); Nitrite Urine Negative (Negative); PH 5.5 (5.0-9.0); Specific Gravity - Urine >= 1.030 (1.005-1.025); Urine Blood Negative (Negative); Urine Ketones Trace mg/dL (Negative); Urine Protein Negative (Neg-Trace)
[2024-03-19 16:56] LABS: UPreg QC Valid YES; Urine Pregnancy NEGATIVE (NEGATIVE)
[2024-03-19] MEDS: Ketorolac Tromethamine 30 MG/ML VIAL IM (17:08)
[2024-03-19 18:30] VITALS: BP 128/74; PULSE 60; RESP 19; TEMP 37; O2SAT 99
== END 2024-03-19 18:31 | disposition home or self-care (01) ==
PROVIDERS: Physician Assistant Medical; Emergency Provider Emergency Medicine
DX: M54.59 Other low back pain (principal)
CPT/HCPCS: 72100; 81003; 81025; 96372; 96374; 99283; 99284; J1885

== ENCOUNTER 2024-03-22 02:27 | Emergency (ER) | payer OTHER, SELFPAY ==
[2024-03-22 02:45] VITALS: BP 132/83; PULSE 82; RESP 16; TEMP 36.6; O2SAT 98; BMI 39.1
== END 2024-03-22 05:35 | disposition left against medical advice (07) ==
PROVIDERS: Emergency Provider Emergency Medicine
DX: M54.50 Low back pain, unspecified (principal); Z53.21 Procedure and treatment not carried out due to patient leaving prior to being seen by health care provider
CPT/HCPCS: 99281

== ENCOUNTER 2024-03-24 13:32 | Outpatient (REF) | payer OTHER, SELFPAY ==
[2024-03-25 03:19] LABS: CT PCR NOT DETECTED (Not Detect.); NG PCR NOT DETECTED (Not Detect.)
[2024-03-25 08:01] LABS: Syphilis Screen Nonreactive (Nonreactive)
[2024-03-25 08:24] LABS: HBc Num1 0.11 S/CO (0.00-0.79); HIV AB/AG Nonreactive (Nonreactive); HIV Num 1 0.05 S/CO (0.00-0.99); Hepatitis B Core Antibody Nonreactive (Nonreactive); ~HepC Num1 0.09 S/CO (0.00-0.79); ~Hepatitis C Antibody Nonreactive (Nonreactive)
[2024-03-25 10:45] LABS: Bacterial Vaginosis PCR POSITIVE (Negative); Candida Group PCR DETECTED (Not Detect); Candida glab krusei PCR NOT DETECTED (Not Detect); Trichomonas vaginalis PCR NOT DETECTED (Not Detect)
== END 2024-03-24 13:33 | disposition home or self-care (01) ==
LOC: HO.LAB 13:32
PROVIDERS: Visit Provider Advanced Practice Midwife
DX: Z30.42 Encounter for surveillance of injectable contraceptive (principal); Z20.2 Contact with and (suspected) exposure to infections with a predominantly sexual mode of transmission
CPT/HCPCS: 0352U; 86704; 86780; 86803; 87389; 87491; 87591; 99395

== ENCOUNTER 2024-03-24 13:32 | Outpatient (AMB) | payer OTHER, SELFPAY ==
--- NOTE | 2024-03-24 13:34 | MHC.OFFVIS ---
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 Doing well with concerns: History of prolapse, did not complete her hysterectomy last year due to lack of support for her children in children's author. She is interested in having this done is unsure if she needs a new referral will let us know at a later date. She tries to eat healthy and stays active with exercise. Has been losing weight by changing her diet, is interested in having more support for this and does not want weight loss via surgery. No bleeding on Depo-Provera. She denies any contraindications to control such as: migraines with aura, history of DVT or pulmonary emboli, high blood pressure, liver disease, thrombolic disorders, Lupus, +PRITI, breast cancer, or smoking. Currently is not sexually active. She denies vaginal itching and irritation. STI screening offered; she accepts. Denies family history of breast or ovarian. Family history of colon cancer. Last pap smear 2021, negative. [facility] Medical History (Updated 03/24/24 @ 14:10 by Brynn Greer CNM) Smoking Cervical cancer screening No known health problems Cholecystectomy planned Surgical History (Updated 03/24/24 @ 13:40 by JINNY Hickey) Hx of cholecystectomy Family History Mother Lymphoma Diabetes Maternal Grandfather Colon cancer Father Diabetes Maternal Grandmother Pulmonary disease Social History (Updated 03/24/24 @ 13:40 by JINNY Hickey) Household Members: Significant Other and Children Both parents involved: Yes Housing: Apartment Alcohol intake: former Patient Tobacco Use Status: Current everyday Tobacco user Tobacco use type: Cigarette Cigarettes Per Day: 10 Years Smoked: 10 Agree to transfusion: Yes Current occupational status: employed 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 Female Reproductive History Menstrual Age of Menarche: 13 control method: progesterone injection Total pregnancies: 5 Full term: 3 Number of Living Children: 3 Ab spontaneous: 2 Date of last pap smear: 10/07/21 (neg pap and hpv) Review of Systems Const All systems reviewed & are unremarkable except as noted in HPI and below Reports as per HPI Eyes Reports no additional complaints ENT Reports no additional complaints Card Reports no additional complaints Resp Reports no additional complaints GI Reports as per HPI and Reports no additional complaints Reports as per HPI Musc Reports no additional complaints Skin/Breast Reports as per HPI Neuro Reports no additional complaints Psych Reports no additional complaints Endo Reports no additional complaints Ivan/Lymph Reports no additional complaints Aller/Immun Reports no additional complaints Physical Exam Vital Signs: Last Vital Signs BP 120/70 03/24/24 13:35 BMI result Body Mass Index 39.2 Const General: cooperative, healthy appearing, no acute distress, well developed and alert Orientation/consciousness: patient oriented x3 HEENT Head: Yes normal to inspection Eyes General: appearance normal, both eyes and all related structures Neck Neck: Yes normal visual inspection Thyroid: Thyroid normal Chest Chest palpation & inspection: normal inspection of the chest and other (no puckering, dimpling, peau de orange, retraction, discharge, masses) Breast/axilla inspection: normal inspection of the breasts Breast/axilla palpation: normal palpation of the breasts Resp Effort & Inspection: normal respiratory effort GI Inspection: Yes normal to inspection Palpation (GI): Soft to palpation Rectal Exam - Female: deferred General: Yes bladder normal to palpation External Female Exam: normal external appearance and normal appearance of the urethra Speculum Exam - Vagina: normal appearance of the vagina, normal palpation and normal vaginal discharge Speculum Exam - Cervix: normal appearance of the cervix, normal palpation and Nabothian cyst present Bimanual exam- vagina & uterus: normal bimanual exam, normal palpation, uterine size normal, bladder normal to palpation, normal palpation, non-tender and other (Prolapse noted) Bimanual Exam- Adnexa, other: no masses Skin General skin exam: no rashes or lesions noted Rashes: no rashes Neuro General: patient oriented x3 Cognition (Neuro): normal cognition Extrem General: Yes normal to inspection Psych Attitude: cooperative Thought process: Normal thought process present Assessment & Plan Assessment & Plan (1) Encounter for well woman exam with routine gynecological exam: Code(s): Z01.419 - Encounter for gynecological examination (general) (routine) without abnormal findings Category: Medical (2) Surveillance for Depo-Provera contraception: Code(s): Z30.42 - Encounter for surveillance of injectable contraceptive Plan Discussed: Current recommendations for pap smears per ASCCP guidelines. Breast awareness and periodic breast exams. Maintain a healthy lifestyle including a well balanced diet and routine exercise. Use condoms for STI and prevention. control hormone use warnings: go to ER if and loss of vision, blindness, severe headache, chest pain or difficulty breathing, severe abdominal pain, or any pain or swelling in an extremity. Call her PCP for weight loss management or internet marketing consultant referral. Call our office is needs a another referral to [facility] residence hall director. Patient verbalizes understanding and agrees to the plan of care. She was given opportunity to ask questions and all questions were answered to the best of my ability. RTO in one year for annual grain commodity manager examination. This note is constructed using voice recognition software. While every effort has been made to ensure accuracy, paper roller errors may have been included. Orders: Orders Hepatitis C Antibody Reflex Today Z20.2 - Contact with and (suspected) exposure to infections with a predominantly sexual mode of transmission Hepatitis B Core Antibody Today Z20.2 - Contact with and (suspected) exposure to infections with a predominantly sexual mode of transmission Syphilis Screen Today Z20.2 - Contact with and (suspected) exposure to infections with a predominantly sexual mode of transmission Bacterial Vaginosis Panel Today Z20.2 - Contact with and (suspected) exposure to infections with a predominantly sexual mode of transmission HIV Ab/Ag Today Z20.2 - Contact with and (suspected) exposure to infections with a predominantly sexual mode of transmission CT NG by PCR Today Z20.2 - Contact with and (suspected) exposure to infections with a predominantly sexual mode of transmission Medications: Refilled medroxyprogesterone (Depo-Provera) Start at beginning of Next menses 150 mg IM Q12W 1 mL 4RF Coding Level of Care Code Est Pt Prev Care 18-39y(42450) Diagnoses Encounter for well woman exam with routine gynecological exam Z01.419 Surveillance for Depo-Provera contraception Z30.42
[2024-03-24 13:35] VITALS: BP 120/70; BMI 39.2
== END 2024-03-24 14:07 | disposition home or self-care (01) ==
PROVIDERS: Visit Provider Advanced Practice Midwife
DX: Z01.419 Encounter for gynecological examination (general) (routine) without abnormal findings (principal); Z30.42 Encounter for surveillance of injectable contraceptive
CPT/HCPCS: 99395

== ENCOUNTER 2024-03-24 14:03 | Outpatient (REF) | payer OTHER, SELFPAY | END 2024-03-24 14:04 | disposition home or self-care (01) | LOC: HO.LNP 14:03 | PROVIDERS: Visit Provider Advanced Practice Midwife | DX: Z13.89 Encounter for screening for other disorder (principal) ==

== ENCOUNTER 2024-05-18 10:53 | Outpatient (AMB) | payer OTHER, SELFPAY ==
[2024-05-18 11:16] VITALS: BMI 39.5
--- NOTE | 2024-05-18 11:16 | AM.OFFVISNUR ---
Vital Signs 05/18/24 11:16 Height 5 ft 10 in Weight 275 lb BMI 39.5 Intake Visit Reasons: DEPO Medical Records Analyst Required: No Allergies yaneth Allergy (Mild, Uncoded 03/24/24 13:35) Shortness of Breath Is last menstrual period known: No Post menopausal: No Patient : No Nursing Note Isabella is here for her scheduled Depo provera injection. No c/o, no new medical problems and no new medications. She reports some spotting after her restart injection in February but no further bleeding. Pt advised it is not unusual to have some BTB when starting a new method of BC. Pt tolerated injection well. She was advised to schedule her next injection in 12 weeks. Pt verbalizes understanding and agrees with plan. No further questions. Office Procedures Depo Questionnaire If YES to any of the following questions, please consult a provider. Date of last injection: 02/26/24 Date of last gynecology exam: 03/24/24 Menstrual pattern since last injection has been: Not Applicable Irregular bleeding?: No Breast lumps or other breast changes?: No Changes in weight or appetite?: No Depression or changes in mood?: No Abnormal hair growth or loss?: No Skin problems (rash, acne, discoloration)?: No Pain at the injection site?: No Headaches?: No Nervousness?: No Abdominal pain or cramping?: No Dizziness or nausea?: No Fatigue or weakness?: No Decrease in sexual drive?: No Chest pain or shortness of breath?: No Swelling in arms or legs?: No Form completed by?: Jocelyn Eubanks RN Office Meds Depo-Provera 150 mg/mL intramuscular syringe Performing Provider: Michelle Nettles CNM Performing Location: [facility] [place] [facility] Administered by: Jocelyn Eubanks on 05/18/24 11:22 Dose Route Admin Location Dispensed Lot Number Expiration Date [facility] Controlled [employer] 150 mg IM left deltoid 1 mL [id number] 04/13/26 55466-683-62 [facility] Assessment & Plan Assessment & Plan (1) Encounter for management and injection of depo-Provera: Code(s): Z30.42 - Encounter for surveillance of injectable contraceptive Category: Medical Orders: Orders AMB Medroxyprogesterone Injection Patient Supplied Today Z30.42 - Encounter for surveillance of injectable contraceptive Medications: New Depo-Provera (medroxyprogesterone) 150 mg IM ONCE 1 mL 0RF NS Z30.42 - Encounter for surveillance of injectable contraceptive
== END 2024-05-18 11:12 | disposition home or self-care (01) ==
LOC: HO.HWS 10:53
PROVIDERS: Visit Provider Advanced Practice Midwife
DX: Z30.42 Encounter for surveillance of injectable contraceptive (principal)

== ENCOUNTER → 2024-05-18 10:53 | Outpatient (BNVA) | payer OTHER, SELFPAY | PROVIDERS: Visit Provider Advanced Practice Midwife | DX: Z30.42 Encounter for surveillance of injectable contraceptive (principal) | CPT/HCPCS: 96372; 99211; J1050 ==

== ENCOUNTER 2024-11-29 23:06 | Emergency (ER) | payer OTHER, SELFPAY ==
[2024-11-29 23:39] VITALS: BP 130/77; PULSE 88; RESP 20; TEMP 37.2; O2SAT 98; BMI 38.3
[2024-11-29 23:55] LABS: Basophils Percent Auto 0.3 % (0-2); Eosinophils Absolute Auto 0.5 X10*3/uL (0.0-0.4); Eosinophils Percent Auto 3.7 % (0-4); Hematocrit 39.2 % (37.0-47.0); Hemoglobin 12.9 g/dl (12.0-16.0); Imm Gran Abs Auto 0.05 X10*3/uL (0.00-0.03); Imm Gran Pct Auto 0.4 % (0.0-0.4); Lymphocytes Absolute Auto 2.9 X10*3/uL (1.2-4.9); Lymphocytes Percent Auto 23.4 % (20-40); MANUAL DIFF FLAG NO; Mean Corpuscular HGB Conc 32.9 g/dl (31.0-35.0); Mean Corpuscular Hemoglobin 23.7 pg (27.0-33.0); Mean Corpuscular Volume 71.9 fL (80.0-98.0); Mean Platelet Volume 9.3 fL (9.4-12.3); Monocytes Absolute Auto 0.7 X10*3/uL (0.1-1.2); Monocytes Percent Auto 5.3 % (2-11); Neutrophils Absolute Auto 8.4 x10*3/uL (2.0-8.3); Neutrophils Percent Auto 66.9 % (45-73); Platelet Count 266 X10*3/uL (160-400); Red Blood Count 5.45 X10*6/uL (4.20-5.50); Red Cell Distribution Width 15.3 % (11.0-16.0); White Blood Count 12.6 X10*3/uL (4.8-10.8)
[2024-11-30 00:10] LABS: Alanine Aminotransferase 21 U/L (0-31); Albumin Level 3.9 g/dL (3.5-5.0); Alkaline Phosphatase 109 U/L (39-117); Anion Gap 11 (12-20); Aspartate Amino Transferase 19 U/L (5-31); Bilirubin Total 0.3 mg/dL (0.0-1.0); Blood Urea Nitrogen 15 mg/dL (9-16); Calcium 9.2 mg/dL (8.4-10.2); Carbon Dioxide 24 mmol/L (22-29); Chloride 109 mmol/L (96-108); Creatinine Clr Calc Pharmacy 133.1; Estimated Glomerular Filt Rate > 60; Glucose Random 97 mg/dL (60-115); Potassium 3.8 mmol/L (3.3-5.1); Sodium 140 mmol/L (135-145); Total Protein 7.5 g/dL (6.5-8.0)
--- NOTE | 2024-11-30 01:32 | ED_ITS ---
HPI - General Adult General Chief complaint: Skin/Abscess/Foreign Body Stated complaint: thigh pain Time Seen by Provider: 11/30/24 01:18 Source: patient, RN notes reviewed and old records reviewed Mode of arrival: ambulatory Limitations: no limitations History of Present Illness ED Provider: Mel HPI narrative: 34-year-old female presents for evaluation of a painful lump to her left inner thigh. She reported a small pimple / abscess on Thursday. She tried to pop the area and noticed some spreading redness and increased pain. She has been using warm compresses with minimal improvement. The pain is 10/10 and worse with standing. Denies any fevers or chills. The patient reports that immediately before I entered the room it popped and is draining all over my pants. Related Data Previous Rx's ?Medication ?Instructions ?Recorded cyclobenzaprine 5 mg tablet 5 - 10 mg (1 - 2 x 5 mg) PO TID 03/19/24 PRN muscle spasm #10 tabs medroxyprogesterone 150 mg/mL 150 mg IM Q12W #1 mL 03/24/24 intramuscular suspension (Depo-Provera) fluconazole 150 mg tablet 150 mg PO DAILY 1 dose #1 tab 03/29/24 metronidazole 500 mg tablet 500 mg PO BID 7 days #14 tabs 03/30/24 cephalexin 500 mg tablet 500 mg PO QID #39 tabs 11/30/24 Allergies Allergy/AdvReac Type Severity Reaction Status Date / Time yaneth Allergy Mild Shortness Uncoded 11/29/24 23:39 of Breath Review of Systems 2 Constitutional: Constitutional: Denies body ache(s), Denies chills, Denies fever(s) and Denies headache(s) ENT: Denies headache(s) Integumentary/Breasts: Skin/Breast: Reports erythema, Reports rash, Reports skin swelling and Reports sores Neurologic: Denies headache(s) [facility] Past Medical History Medical History (Updated 11/30/24 @ 01:33 by Josué Leal) Encounter for management and injection of depo-Provera Smoking Cervical cancer screening No known health problems Cholecystectomy planned Surgical History (Updated 03/24/24 @ 13:40 by JINNY Hickey) Hx of cholecystectomy Family History Family History Mother Lymphoma Diabetes Maternal Grandfather Colon cancer Father Diabetes Maternal Grandmother Pulmonary disease Social History Social History (Updated 03/24/24 @ 13:40 by JINNY Hickey) Household Members: Significant Other and Children Housing: Apartment Alcohol intake: former Patient Tobacco Use Status: Current everyday Tobacco user Tobacco use type: Cigarette Cigarettes Per Day: 10 Years Smoked: 10 Agree to transfusion: Yes Advance Directives: No Advance Directives Information Provided: Yes Do you have a plan to hurt others: No Plan Current occupational status: employed 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 Physical Exam ED Vital Signs: Vital Signs - 24 hr 11/29/24 23:39 11/30/24 01:37 11/30/24 01:41 Temperature 99.0 F 98.2 F 98.2 F Pulse Rate 88 96 96 Respiratory Rate 20 16 16 Blood Pressure 130/77 124/91 H 124/91 H Pulse Oximetry 98 97 97 Oxygen Delivery Method Room Air Room Air Room Air BMI result Body Mass Index 38.3 Const General: healthy appearing, comfortable, no acute distress, alert and awake Nutritional Appearance: well nourished Orientation/consciousness: patient oriented x3 HENMT Head: Yes normocephalic and Yes atraumatic Eyes Eyelids: Yes eyelids normal Conjunctivae: conjunctivae normal Sclerae: sclerae normal Corneas: corneas normal Pupils: Equal, round and reactive pupils present EOM: EOMs intact bilaterally Neck Neck: Yes full ROM Resp Effort & Inspection: normal respiratory effort, able to speak in complete sentences and not labored Skin Other: Patient has about a 3 cm area of induration with erythema, a small central opening to the left inner thigh, about 7 cm from the groin. There is active purulent drainage, foul-smelling. There is some tenderness to palpation. No retained fluctuance General skin exam: elasticity normal Neuro General: patient oriented x3 Cranial nerves: Yes Equal, round and reactive pupils present and Yes Bilaterally intact EOM present Cognition (Neuro): normal cognition Extrem Other: Moving all extremities well without any obvious deformities Medications Administered Discontinued Medications Generic Name Dose Route Start Last Admin Trade Name Freq PRN Reason Stop Dose Admin Cephalexin HCl 500 mg 11/30/24 01:32 11/30/24 01:37 Cephalexin 500 Mg Capsule PO 11/30/24 01:33 500 mg ONCE ONE Administration Medical Decision Making Medical Decision Making [facility] Narrative: patient appears to have a small localized skin infection/ abscess. This opened on its own prior to any intervention. Discussed possible continued incision and probing which was ultimately deferred. The patient has a mild leukocytosis consistent with a mild infection, no evidence of sepsis. Vital signs are stable, she was afebrile. We will treat her with cephalexin she will continue warm compresses, return precautions were given Differential Diagnosis Differential Diagnoses: The differential diagnosis associated with the presentation includes abscess Cellulitis Sebaceous cyst [place]'s gland abscess Bartholin's gland abscess Lab Data [facility] Lab Attestation statement: I reviewed the patient's lab results. mild leukocytosis with a left shift. No significant anemia. No chemistry abnormalities warranting intervention 11/29/24 23:50 11/29/24 23:50 Labs: Lab Results 11/29/24 Range/Units 23:50 WBC 12.6 H (4.8-10.8) X10*3/uL RBC 5.45 (4.20-5.50) X10*6/uL Hgb 12.9 (12.0-16.0) g/dl Hct 39.2 (37.0-47.0) % MCV 71.9 L (80.0-98.0) fL MCH 23.7 L (27.0-33.0) pg MCHC 32.9 (31.0-35.0) g/dl RDW 15.3 (11.0-16.0) % Plt Count 266 (160-400) X10*3/uL MPV 9.3 L (9.4-12.3) fL Immature Gran % (Auto) 0.4 (0.0-0.4) % Neut % (Auto) 66.9 (45-73) % Lymph % (Auto) 23.4 (20-40) % [place] % (Auto) 5.3 (2-11) % Eos % (Auto) 3.7 (0-4) % Baso % (Auto) 0.3 (0-2) % Lymph # (Auto) 2.9 (1.2-4.9) X10*3/uL [place] # (Auto) 0.7 (0.1-1.2) X10*3/uL Eos # (Auto) 0.5 H (0.0-0.4) X10*3/uL Baso # (Auto) 0.0 (0.0-0.2) X10*3/uL Abs Immat Gran (auto) 0.05 H (0.00-0.03) X10*3/uL Absolute Neuts (auto) 8.4 H (2.0-8.3) x10*3/uL Absolute Nucleated RBC 0.000 (0.0-0.012) X10*3/uL Nucleated RBC % (auto) 0.0 (0.0-0.2) /100WBC Sodium 140 (135-145) mmol/L Potassium 3.8 (3.3-5.1) mmol/L Chloride 109 H (96-108) mmol/L Carbon Dioxide 24 (22-29) mmol/L Anion Gap 11 L (12-20) BUN 15 (9-16) mg/dL Creatinine 0.80 (0.5-1.4) mg/dL Estim Creat Clear Calc 133.1 Estimated GFR > 60 Random Glucose 97 (60-115) mg/dL Calcium 9.2 (8.4-10.2) mg/dL Total Bilirubin 0.3 (0.0-1.0) mg/dL AST 19 (5-31) U/L ALT 21 (0-31) U/L Alkaline Phosphatase 109 (39-117) U/L Total Protein 7.5 (6.5-8.0) g/dL Albumin 3.9 (3.5-5.0) g/dL Discharge Plan Discharge Clinical Impression: Abscess of left thigh Patient Disposition: Home, Self-Care Instructions: Abscess (ED) Additional Instructions: continue using warm compresses approximately every 4 hours. Take cephalexin every 4 hours for the next 10 days use ibuprofen/Tylenol return for new or worsening symptoms, especially if you develop fevers Prescriptions: New cephalexin 500 mg tablet 500 mg PO QID Qty: 39 0RF No Action fluconazole 150 mg tablet 150 mg PO DAILY Qty: 1 0RF Rx Instructions: administer on day 1 of therapy metronidazole 500 mg tablet 500 mg PO BID 7 Days Qty: 14 0RF Rx Instructions: Take with food, Avoid alcohol and vinegar products cyclobenzaprine 5 mg tablet 5 - 10 mg PO TID PRN (Reason: muscle spasm) Qty: 10 0RF medroxyprogesterone [Depo-Provera] 150 mg/mL suspension 150 mg IM Q12W Qty: 1 4RF Rx Instructions: Start at beginning of Next menses Interventions: ED Discharge Assessment Last Done: 11/30/24 01:41 Discharge Date/Time: 11/30/24 01:41 Print Language: Burmese
[2024-11-30 01:37] VITALS: BP 124/91; PULSE 96; RESP 16; TEMP 36.8; O2SAT 97
[2024-11-30] MEDS: cephALEXin 500 MG CAPSULE PO (01:37)
[2024-11-30 01:41] VITALS: BP 124/91; PULSE 96; RESP 16; TEMP 36.8; O2SAT 97
== END 2024-11-30 01:41 | disposition home or self-care (01) ==
PROVIDERS: Emergency Provider Emergency Medicine
DX: L02.416 Cutaneous abscess of left lower limb (principal); D72.829 Elevated white blood cell count, unspecified; M79.652 Pain in left thigh; F17.210 Nicotine dependence, cigarettes, uncomplicated
CPT/HCPCS: 36415; 80053; 85025; 99283

== ENCOUNTER 2025-01-13 00:31 | Emergency (ER) | payer OTHER, SELFPAY ==
[2025-01-13 00:35] VITALS: BP 125/79; PULSE 96; RESP 16; TEMP 36.7; O2SAT 97; BMI 40.8
[2025-01-13 00:48] LABS: MANUAL DIFF FLAG NO
[2025-01-13 00:52] LABS: Basophils Percent Auto 0.2 % (0-2); Eosinophils Absolute Auto 0.4 X10*3/uL (0.0-0.4); Eosinophils Percent Auto 3.4 % (0-4); Hematocrit 40.2 % (37.0-47.0); Hemoglobin 12.9 g/dl (12.0-16.0); Imm Gran Abs Auto 0.02 X10*3/uL (0.00-0.03); Imm Gran Pct Auto 0.2 % (0.0-0.4); Lymphocytes Absolute Auto 2.7 X10*3/uL (1.2-4.9); Lymphocytes Percent Auto 24.6 % (20-40); Mean Corpuscular HGB Conc 32.1 g/dl (31.0-35.0); Mean Corpuscular Hemoglobin 23.4 pg (27.0-33.0); Mean Platelet Volume 9.6 fL (9.4-12.3); Monocytes Absolute Auto 0.7 X10*3/uL (0.1-1.2); Monocytes Percent Auto 6.3 % (2-11); Neutrophils Absolute Auto 7.2 x10*3/uL (2.0-8.3); Neutrophils Percent Auto 65.3 % (45-73); Platelet Count 279 X10*3/uL (160-400); Red Blood Count 5.51 X10*6/uL (4.20-5.50); Red Cell Distribution Width 15.4 % (11.0-16.0)
[2025-01-13 01:18] LABS: Alanine Aminotransferase 27 U/L (0-31); Alkaline Phosphatase 124 U/L (39-117); Anion Gap 14 (12-20); Aspartate Amino Transferase 32 U/L (5-31); Bilirubin Total 0.5 mg/dL (0.0-1.0); Blood Urea Nitrogen 14 mg/dL (9-16); Calcium 9.3 mg/dL (8.4-10.2); Carbon Dioxide 25 mmol/L (22-29); Chloride 107 mmol/L (96-108); Creatinine Clr Calc Pharmacy 140.9; Estimated Glomerular Filt Rate > 60; Glucose Random 99 mg/dL (60-115); Lipase 32 U/L (8-78); Potassium 4.1 mmol/L (3.3-5.1); Sodium 142 mmol/L (135-145); Total Protein 7.2 g/dL (6.5-8.0)
[2025-01-13 01:55] VITALS: BP 142/60; PULSE 72; RESP 16; TEMP 36.9; O2SAT 97
--- NOTE | 2025-01-13 02:33 | ED.GENADULT ---
HPI - General Adult General Chief complaint: Abdominal Pain Stated complaint: upper abd pain Time Seen by Provider: 01/13/25 01:30 Source: patient Limitations: no limitations History of Present Illness ED Provider: Nazanin Mcclain PA-C HPI narrative: 35-year-old female with a history of morbid obesity who presents with nausea and diarrhea x3 days. Associated epigastric discomfort with indigestion. Patient states her son is sick with similar symptoms. Denies fever or cough or cold symptoms. Related Data Previous Rx's ?Medication ?Instructions ?Recorded cyclobenzaprine 5 mg tablet 5 - 10 mg (1 - 2 x 5 mg) PO TID 03/19/24 PRN muscle spasm #10 tabs medroxyprogesterone 150 mg/mL 150 mg IM Q12W #1 mL 03/24/24 intramuscular suspension (Depo-Provera) fluconazole 150 mg tablet 150 mg PO DAILY 1 dose #1 tab 03/29/24 metronidazole 500 mg tablet 500 mg PO BID 7 days #14 tabs 03/30/24 cephalexin 500 mg tablet 500 mg PO QID #39 tabs 11/30/24 fluconazole 150 mg tablet 150 mg PO DAILY 1 dose #1 tab 12/07/24 dicyclomine 20 mg tablet 20 mg PO BID PRN abdominal pain #7 01/13/25 tabs ondansetron HCl 4 mg tablet 4 mg PO Q8H PRN nausea and 01/13/25 vomiting #10 tabs sucralfate 100 mg/mL oral 10 ml PO QID PRN indigestion #300 01/13/25 suspension (Carafate) mL Allergies Allergy/AdvReac Type Severity Reaction Status Date / Time yaneth Allergy Mild Shortness Uncoded 01/13/25 00:37 of Breath Review of Systems Review of Systems: Yes all other systems are reviewed and are negative Constitutional: Constitutional: Denies fatigue and Denies fever(s) Cardiovascular: Cardiovascular: Denies chest pain and Denies dyspnea Respiratory: Respiratory: Denies cough and Denies dyspnea Gastrointestinal: Gastrointestinal: Reports abdominal pain, Reports dyspepsia, Reports diarrhea, Reports nausea and Denies vomiting Endocrine: Endocrine: Denies fatigue PMFSH Past Medical History Attestation statement: The following information was validated with the patient. Medical History (Updated 01/13/25 @ 03:05 by NORA Forbes) Encounter for management and injection of depo-Provera Smoking Cervical cancer screening No known health problems Cholecystectomy planned Surgical History (Updated 03/24/24 @ 13:40 by JINNY Hickey) Hx of cholecystectomy Family History Family History Mother Lymphoma Diabetes Maternal Grandfather Colon cancer Father Diabetes Maternal Grandmother Pulmonary disease Social History Social History (Updated 03/24/24 @ 13:40 by JINNY Hickey) Household Members: Significant Other and Children Housing: Apartment Alcohol intake: former Patient Tobacco Use Status: Current everyday Tobacco user Tobacco use type: Cigarette Cigarettes Per Day: 10 Years Smoked: 10 Agree to transfusion: Yes Advance Directives: No Advance Directives Information Provided: Yes Do you have a plan to hurt others: No Plan Current occupational status: employed 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 Physical Exam ED Vital Signs: Vital Signs - 24 hr 01/13/25 00:35 01/13/25 01:55 Temperature 98.1 F 98.4 F Pulse Rate 96 72 Respiratory Rate 16 16 Blood Pressure 125/79 142/60 H Pulse Oximetry 97 97 Oxygen Delivery Method Room Air BMI result Body Mass Index 40.8 Const Other: Alert Orientation/consciousness: patient oriented x3 Resp Effort & Inspection: normal respiratory effort Cardio Other: Normal peripheral perfusion GI Other: Abdomen is soft, nontender nondistended no guarding Skin Other: Warm dry no rash Neuro General: patient oriented x3, gait normal, no focal motor deficits and CN's II-XI intact bilaterally Psych Other: Cooperative Medical Decision Making Medical Decision Making MDM Narrative: 35-year-old female with a history of morbid obesity who presents with nausea and diarrhea x3 days. Associated epigastric discomfort with indigestion. Patient states her son is sick with similar symptoms. Denies fever or cough or cold symptoms. No chronic issues History: Per patient I have considered the following differential diagnoses: Cholecystitis, biliary colic, gastritis, viral gastroenteritis Plan: Given upper abdominal discomfort I did considered biliary versus gastric etiology as cause for symptoms, the patient was not having postprandial symptoms, her abdominal exam was benign, and her LFTs are normal. Given her son has same symptoms, this is viral gastroenteritis. We will treat accordingly. Screening labs were already obtained from triage and are normal I have independently reviewed the following tests: Labs: Slight leukocytosis, not anemic, no electrolyte abnormality Lab Data 01/13/25 00:44 01/13/25 00:44 Labs: Lab Results 01/13/25 Range/Units 00:44 WBC 11.0 H (4.8-10.8) X10*3/uL RBC 5.51 H (4.20-5.50) X10*6/uL Hgb 12.9 (12.0-16.0) g/dl Hct 40.2 (37.0-47.0) % MCV 73.0 L (80.0-98.0) fL MCH 23.4 L (27.0-33.0) pg MCHC 32.1 (31.0-35.0) g/dl RDW 15.4 (11.0-16.0) % Plt Count 279 (160-400) X10*3/uL MPV 9.6 (9.4-12.3) fL Immature Gran % (Auto) 0.2 (0.0-0.4) % Neut % (Auto) 65.3 (45-73) % Lymph % (Auto) 24.6 (20-40) % [place] % (Auto) 6.3 (2-11) % Eos % (Auto) 3.4 (0-4) % Baso % (Auto) 0.2 (0-2) % Lymph # (Auto) 2.7 (1.2-4.9) X10*3/uL [place] # (Auto) 0.7 (0.1-1.2) X10*3/uL Eos # (Auto) 0.4 (0.0-0.4) X10*3/uL Baso # (Auto) 0.0 (0.0-0.2) X10*3/uL Abs Immat Gran (auto) 0.02 (0.00-0.03) X10*3/uL Absolute Neuts (auto) 7.2 (2.0-8.3) x10*3/uL Absolute Nucleated RBC 0.000 (0.0-0.012) X10*3/uL Nucleated RBC % (auto) 0.0 (0.0-0.2) /100WBC Sodium 142 (135-145) mmol/L Potassium 4.1 (3.3-5.1) mmol/L Chloride 107 (96-108) mmol/L Carbon Dioxide 25 (22-29) mmol/L Anion Gap 14 (12-20) BUN 14 (9-16) mg/dL Creatinine 0.80 (0.5-1.4) mg/dL Estim Creat Clear Calc 140.9 Estimated GFR > 60 Random Glucose 99 (60-115) mg/dL Calcium 9.3 (8.4-10.2) mg/dL Total Bilirubin 0.5 (0.0-1.0) mg/dL AST 32 H (5-31) U/L ALT 27 (0-31) U/L Alkaline Phosphatase 124 H (39-117) U/L Total Protein 7.2 (6.5-8.0) g/dL Albumin 4.0 (3.5-5.0) g/dL Lipase 32 (8-78) U/L Discharge Plan Discharge Clinical Impression: Viral gastroenteritis Patient Disposition: Home, Self-Care Instructions: Gastroenteritis (ED) Additional Instructions: All of your screening labs were normal. You likely have viral gastroenteritis given your son has a same symptoms. See home care instructions. Uses Zofran as needed for nausea, use the Carafate as needed for indigestion. Use the dicyclomine as needed for abdominal cramping and diarrhea. Viral illnesses self-limiting, be sure to rest and maintain proper hydration. Follow up with your primary care provider as needed. Prescriptions: New ondansetron HCl 4 mg tablet 4 mg PO Q8H PRN (Reason: nausea and vomiting) Qty: 10 0RF sucralfate [Carafate] 100 mg/mL suspension 10 ml PO QID PRN (Reason: indigestion) Qty: 300 0RF Rx Instructions: swish in mouth and swallow; use after food/drink dicyclomine 20 mg tablet 20 mg PO BID PRN (Reason: abdominal pain) Qty: 7 0RF No Action fluconazole 150 mg tablet 150 mg PO DAILY Qty: 1 0RF Rx Instructions: administer on day 1 of therapy metronidazole 500 mg tablet 500 mg PO BID 7 Days Qty: 14 0RF Rx Instructions: Take with food, Avoid alcohol and vinegar products fluconazole 150 mg tablet 150 mg PO DAILY Qty: 1 0RF Rx Instructions: administer on day 1 of therapy cyclobenzaprine 5 mg tablet 5 - 10 mg PO TID PRN (Reason: muscle spasm) Qty: 10 0RF cephalexin 500 mg tablet 500 mg PO QID Qty: 39 0RF medroxyprogesterone [Depo-Provera] 150 mg/mL suspension 150 mg IM Q12W Qty: 1 4RF Rx Instructions: Start at beginning of Next menses Stand Alone Forms: Work/School Release Print Language: Persian
[2025-01-13] MEDS: Ondansetron ODT 4 MG TAB.RAPDIS TRANSLINGU (03:05)
[2025-01-13] MEDS: Sucralfate Oral Suspension 1 GM/10 ML ORAL.SUSP PO (03:05)
[2025-01-13] MEDS: Dicyclomine HCl 10 MG CAPSULE 20 MG PO (03:05)
[2025-01-13 03:32] VITALS: BP 109/61; PULSE 94; RESP 16; TEMP 36.7; O2SAT 97
[2025-01-13 03:35] VITALS: BP 109/61; PULSE 94; RESP 16; TEMP 36.7; O2SAT 97
== END 2025-01-13 03:35 | disposition home or self-care (01) ==
PROVIDERS: Emergency Provider Internal Medicine
DX: A08.4 Viral intestinal infection, unspecified (principal); R11.0 Nausea; R19.7 Diarrhea, unspecified
CPT/HCPCS: 36415; 80053; 83690; 85025; 99283; 99284

== ENCOUNTER 2025-07-22 22:13 | Emergency (ER) | payer OTHER, SELFPAY ==
--- NOTE | ~2025-07-22 | XR_ITS ---
CLINICAL HISTORY: cough 1 view chest x-ray Comparison: None provided Findings: No consolidation or effusion. Heart size is normal. No acute fracture. IMPRESSION: 1. No acute findings. This document has been electronically signed by: Moses Gale MD on 07/23/2025 00:53:18
[2025-07-22 22:20] VITALS: BP 131/68; PULSE 95; RESP 20; TEMP 36.6; O2SAT 98; BMI 39.9
--- NOTE | 2025-07-22 22:28 | ED.GENADULT ---
HPI - General Adult General Chief complaint: Upper Respiratory Symptoms Stated complaint: wheezing and coughing/seasonal asthma Time Seen by Provider: 07/22/25 23:01 Source: patient Mode of arrival: ambulatory Limitations: no limitations History of Present Illness ED Provider: Dr. Brunilda Fraire HPI narrative: Patient comes to the emergency room complaining of asthma exacerbation, URI symptoms, congestion and Headache. Patient states that she has been using albuterol every couple of hours up to 45 minutes. Patient has been using her son's nebulization treatments with budesonide. Patient denies fever chills Related Data Previous Rx's ?Medication ?Instructions ?Recorded cyclobenzaprine 5 mg tablet 5 - 10 mg (1 - 2 x 5 mg) PO TID 03/19/24 PRN muscle spasm #10 tabs medroxyprogesterone 150 mg/mL 150 mg IM Q12W #1 mL 03/24/24 intramuscular suspension (Depo-Provera) fluconazole 150 mg tablet 150 mg PO DAILY 1 dose #1 tab 03/29/24 metronidazole 500 mg tablet 500 mg PO BID 7 days #14 tabs 03/30/24 cephalexin 500 mg tablet 500 mg PO QID #39 tabs 11/30/24 fluconazole 150 mg tablet 150 mg PO DAILY 1 dose #1 tab 12/07/24 dicyclomine 20 mg tablet 20 mg PO BID PRN abdominal pain #7 01/13/25 tabs ondansetron HCl 4 mg tablet 4 mg PO Q8H PRN nausea and 01/13/25 vomiting #10 tabs sucralfate 100 mg/mL oral 10 ml PO QID PRN indigestion #300 01/13/25 suspension (Carafate) mL albuterol sulfate 90 mcg/actuation 2 puff inhalation Q4-6H PRN 07/22/25 aerosol inhaler (Ventolin HFA) shortness of breath or wheezing #8.5 grams prednisone 50 mg tablet 50 mg PO DAILY #4 tabs 07/22/25 doxylamin 12.5 mg-PSE 10 mg-DM 20 1 packet PO Q4H PRN cold symptoms 07/23/25 mg-acetaminophen 650 mg oral pwdr #6 ea pk ([place]anira-[place] Plus Cold-Flu) Allergies Allergy/AdvReac Type Severity Reaction Status Date / Time yaneth Allergy Mild Shortness Uncoded 07/22/25 22:22 of Breath Review of Systems Review of Systems: Constitutional : No Weight loss, No Fever, No Chills, No Night Sweats, No Fatigue, No Malaise ENT/Mouth : No Hearing loss, No Ear Pain, complaining of Congestion, No Sinus Pain, No Hoarseness, No sore throat, No Rhinorrhea, No Swallowing Difficulty Eyes: No Eye Pain, No Swelling, No Redness, No Foreign Body, No Discharge, No Vision Changes Cardiovascular : No Chest Pain, No SOB, No Dyspnea on Exertion, No Orthopnea, No Edema, No Palpitations Respiratory : No Cough, No Sputum, complaining of Wheezing, No Smoke Exposure, No Dyspnea Gastrointestinal : No Nausea, No Vomiting, No Diarrhea, No Constipation, No abdominal Pain, No Hematochezia, No Melena Genitourinary : no irregular bleeding, No Dysuria, No Urinary Frequency, No Hematuria, No Urinary Incontinence, No Urgency, No Flank Pain, No Urinary Flow Changes, No Hesitancy Musculoskeletal : No joint pain, No Myalgias, No Joint Swelling Skin : No Skin Lesions, No rash Neuro : No Weakness, No Numbness, No Paresthesias, No Loss of Consciousness, No Dizziness, complaining of Headache Psych : No Anxiety/Panic, No Depression, No SI/HI/AH/VH, No Social Issues, Heme/Lymph: No Bruising, No Bleeding,No Lymphadenopathy Endocrine : No Polyuria, No Polydipsia, No Temperature Intolerance PMFSH Past Medical History Medical History Encounter for management and injection of depo-Provera Smoking Cervical cancer screening No known health problems Cholecystectomy planned Surgical History (Updated 03/24/24 @ 13:40 by JINNY Hickey) Hx of cholecystectomy Family History Family History Mother Lymphoma Diabetes Maternal Grandfather Colon cancer Father Diabetes Maternal Grandmother Pulmonary disease Social History Social History (Updated 03/24/24 @ 13:40 by JINNY Hickey) Household Members: Significant Other and Children Both parents involved: Yes Housing: Apartment Alcohol intake: former Patient Tobacco Use Status: Current everyday Tobacco user Tobacco use type: Cigarette Cigarettes Per Day: 10 Years Smoked: 10 Agree to transfusion: Yes Current occupational status: employed 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 Oriented X3. No acute distress. Eyes: Pupils equal, round and reactive to light. ENT: Pharynx normal. Patient has nasal congestion, runny nose Neck: Normal inspection. Neck supple. No lymph nodes noted. No crepitus CVS: Normal heart rate and rhythm. Pulses normal. Normal S1 and S2 Respiratory: Normal breath sounds, no wheezing Abdomen: Soft and nontender. No rigidity. No distention. Skin: Skin warm and dry. Normal skin color. Normal skin turgor. Extremities: No lower extremity edema. No Lacerations. No Rash Neuro: Oriented X 3. No motor deficit. No sensory deficit. Moving all extremities. No slurred speech. CN 2 through 12 grossly intact Psych: calm, cooperative, normal affect Vital Signs: Vital Signs - 24 hr 07/22/25 22:20 07/23/25 01:02 Temperature 97.9 F Pulse Rate 95 Respiratory Rate 20 Blood Pressure 131/68 Pulse Oximetry 98 94 Oxygen Delivery Method Room Air BMI result Body Mass Index 39.9 Course Course Course Narrative: Medical screening exam performed. Please refer to detailed history, exam, evaluation, and management by primary provider. Patient with asthma, recent cough, congestion. Using albuterol without relief. Well-appearing and nontoxic. JS Medications Administered Discontinued Medications Generic Name Dose Route Start Last Admin Trade Name Freq PRN Reason Stop Dose Admin Ketorolac Tromethamine 60 mg 07/22/25 23:09 07/22/25 23:22 Ketorolac Tromethamine 60 Mg/2 Ml Vial IM 07/22/25 23:10 60 mg ONCE ONE Administration Prednisone 60 mg 07/22/25 23:09 07/22/25 23:22 Prednisone 20 Mg Tablet PO 07/22/25 23:10 60 mg ONCE ONE Administration Medical Decision Making Medical Decision Making [facility] Narrative: My interpretation of labs: Patient's cytology negative for COVID and influenza On physical exam, patient is not actively wheezing. Patient has good air movement, oxygen saturation 98%. Patient was given p.o. prednisone, at this time, no inhalers needed. Chest x-ray: No acute abnormality. Patient was ambulated in the ED, oxygen saturation 94% Differential Diagnosis Differential Diagnoses: The differential diagnosis associated with the presentation includes (COVID, influenza, viral URI, asthma exacerbation) Admission/Observation Consideration of admission/observation: Escalation of care including admission/observation considered Lab Data MDM Lab Attestation statement: I reviewed the patient's lab results. Labs: Lab Results 07/22/25 Range/Units 22:42 COVID-19 (AMBROSIO) Negative (Negative) COVID-19 Clin Com See Note Influenza Type A (FLY) Negative (Negative) Influenza Type B (FLY) Negative (Negative) Influenza A & B Note See Note Independent Interpretation I performed an independent interpretation of an: Plain X-Ray Radiology Impression Discussion of test interpretation with radiology: I have reviewed the radiologist's reading. Radiologist Impression: No consolidation or effusion. Heart size is normal. No acute fracture. Discharge Plan Discharge Clinical Impression: Viral URI, Asthma Patient Disposition: Home, Self-Care Instructions: Asthma (ED), Viral Syndrome (ED) Additional Instructions: Please follow-up with your primary care physician tomorrow. If you have any worsening or new symptoms, please return to the emergency room or call 911 Prescriptions: New prednisone 50 mg tablet 50 mg PO DAILY Qty: 4 0RF albuterol sulfate [Ventolin HFA] 90 mcg/actuation HFA aerosol inhaler 2 puff inhalation Q4-6H PRN (Reason: shortness of breath or wheezing) Qty: 8.5 0RF [place]ira-[place] Plus Cold-Flu 12.5-10-20-650 mg powder in packet 1 packet PO Q4H PRN (Reason: cold symptoms) Qty: 6 0RF Rx Instructions: DNExceed 5 doses/24h No Action fluconazole 150 mg tablet 150 mg PO DAILY Qty: 1 0RF Rx Instructions: administer on day 1 of therapy metronidazole 500 mg tablet 500 mg PO BID 7 Days Qty: 14 0RF Rx Instructions: Take with food, Avoid alcohol and vinegar products fluconazole 150 mg tablet 150 mg PO DAILY Qty: 1 0RF Rx Instructions: administer on day 1 of therapy cyclobenzaprine 5 mg tablet 5 - 10 mg PO TID PRN (Reason: muscle spasm) Qty: 10 0RF cephalexin 500 mg tablet 500 mg PO QID Qty: 39 0RF ondansetron HCl 4 mg tablet 4 mg PO Q8H PRN (Reason: nausea and vomiting) Qty: 10 0RF sucralfate [Carafate] 100 mg/mL suspension 10 ml PO QID PRN (Reason: indigestion) Qty: 300 0RF Rx Instructions: swish in mouth and swallow; use after food/drink dicyclomine 20 mg tablet 20 mg PO BID PRN (Reason: abdominal pain) Qty: 7 0RF medroxyprogesterone [Depo-Provera] 150 mg/mL suspension 150 mg IM Q12W Qty: 1 4RF Rx Instructions: Start at beginning of Next menses Interventions: ED Discharge Assessment Last Done: 07/23/25 01:28 Discharge Date/Time: 07/23/25 01:30 Print Language: Latvian
[2025-07-23 01:02] VITALS: O2SAT 94
[2025-07-23 01:27] VITALS: BP 116/59; PULSE 83; RESP 16; TEMP 36.9; O2SAT 96
[2025-07-23 01:28] VITALS: BP 116/59; PULSE 83; RESP 16; TEMP 36.9; O2SAT 96
== END 2025-07-23 01:30 | disposition home or self-care (01) ==
PROVIDERS: Emergency Provider Emergency Medicine
DX: J06.9 Acute upper respiratory infection, unspecified (principal); J45.909 Unspecified asthma, uncomplicated
CPT/HCPCS: 71045; 87502; 87635; 96372; 99284; J1885

== ENCOUNTER → 2025-07-22 23:50 | Outpatient (BNV) | payer SELFPAY | PROVIDERS: Emergency Provider Emergency Medicine; Visit Provider Radiology Diagnostic Radiology | DX: R05.9 Cough, unspecified (principal) | CPT/HCPCS: 71045 ==